=== PATIENT | female | born 2005 | race Hispanic/Latino ===

== ENCOUNTER 2024-12-29 20:09 | Inpatient (IN) | payer SELFPAY ==
[2024-12-29 19:24] VITALS: BMI 26.6
[2024-12-29 19:30] VITALS: BP 108/60; PULSE 75; O2SAT 99
[2024-12-29 19:31] VITALS: RESP 16; TEMP 36.8
[2024-12-29 20:02] LABS: ROM Internal Control Test YES-OK TO RESULT pt. (Internal QC)
[2024-12-29 20:06] LABS: ROM Patient Test POSITIVE (Negative); Record Kit Lot#, ROM+ K3358
--- OUTSIDE RECORDS SUMMARY | 2024-12-29 20:15 | XMS RPT_ITS | CCD ---
Author Organization [facility] Care Team Providers Care Commercial Energy Auditor Name Role Phone Unavailable Primary Care Provider Damion Wen RN, Juliette Hodgson Unavailable Unavailable KEN ISRAEL Attending Unavailable HAURY, JULIETA Referring Unavailable BENNIEANGELIC GARCIA Attending Unavailable HAURY, JULIETA Referring Unavailable LINDY, HUSSAINMON Attending Unavailable LINDY, HUSSAINMON Referring Unavailable LINDY, KARMON Referring Unavailable HAURY, JULIETA Referring Unavailable LINDY, KEN Attending Unavailable HAURY, JULIETA Referring Unavailable HAURY, JULIETA Referring Unavailable HAURY, JULIETA Attending Unavailable SELF Referring Unavailable ANGELIC CHEN Attending Unavailable PEGGY MATHEWS Attending Unavailable SELF Referring Unavailable ANGELIC CHEN Referring Unavailable CLEOPATRA ALEXANDER Attending Unavailable SELF Referring Unavailable SELF Referring Unavailable Medications Current Medications Medication Drug Class(es) Dates Sig (Normalized) Sig (Original) aspirin 81 mg delayed release oral tablet (19 sources) Platelet Aggregation Inhibitor, Nonsteroidal Anti-inflammatory Drug Start: 08-02-2024 take 1 tablet by mouth once daily aspirin, enteric coated (ECOTRIN LOW STRENGTH) 81 mg EC tablet Indications: Supervision of high risk in first trimester ([facility]) , with uncertain dates in first trimester ([facility]) , 12 weeks gestation of ([facility]) , Nausea/vomiting in ([facility]) Take 1 tablet by mouth once daily. 90 tablet 3 08/02/2024 Active azithromycin 500 mg oral tablet (1 source) Macrolide Antimicrobial Start: 08-05-2024 End: 08-05-2024 take 2 tablets by mouth once azithromycin (ZITHROMAX) 500 mg tablet Indications: Chlamydia infection affecting in first trimester Take 2 tablets by mouth one time only for 1 dose. 2 tablet 08/05/2024 08/05/2024 Active doxycycline monohydrate 100 mg oral capsule (4 sources) Tetracycline-class Drug Start: 08-05-2024 End: 08-12-2024 take 1 capsule by mouth twice daily doxycycline monohydrate (MONODOX) 100 mg capsule Take 1 capsule by mouth two times a day for 7 days. 14 capsule 08/05/2024 08/12/2024 Active PNV no.95/ferrous fum/folic ac ( ORAL) (19 sources) PNV no.95/ferrou s fum/folic ac ( ORAL) Take by mouth. Active Completed/Discontinued Medications Medication Drug Class(es) Dates Sig (Normalized) Sig (Original) ondansetron 4 mg oral tablet (4 sources) Serotonin-3 Receptor Antagonist Start: 08-06-2024 End: 09-03-2024 take 1 tablet by mouth every eight hours as needed ondansetron (ZOFRAN) 4 mg tablet Take 1 tablet by mouth every 8 hours as needed for nausea/vomiting. 20 tablet 1 08/06/2024 09/03/2024 Discontinued Problems Active Problems Problem Classification Problem Date Documented Da te Episodic/Chronic Bacterial infection; unspecified site (1 source) Chlamydial infection, unspecified; Translations: [Chlamydia infection affecting in first trimester (HCC)] Onset: 12-04-2024 Episodic Immunizations and screening for infectious disease (2 sources) Vaccination needed; Translations: [Encounter for immunization] Onset: 10-29-2024 10-29-2024 Episodic Other complications of (20 sources) High risk ; Translations: [Supervision of high risk , unspecified, first trimester] Onset: 08-02-2024 08-02-2024 Episodic Other complications of (1 source) Supervision of high risk , unspecified, third trimester; Translations: [Supervision of high risk in third trimester (HCC)] Onset: 12-18-2024 Episodic Other complications of (1 source) Other maternal infectious and parasitic diseases complicating , first trimester; Translations: [Chlamydia infection affecting in first trimester (HCC)] Onset: 12-04-2024 Episodic Other complications of (1 source) Supervision of high risk , unspecified, second trimester; Translations: [Supervision of high risk in second trimester (HCC)] Onset: 10-29-2024 Episodic Other screening for suspected conditions (not mental disorders or infectious disease) (20 sources) Patient encounter status; Translations: [Encounter for other specified screening] Onset: 09-03-2024 09-03-2024 Episodic Other skin disorders (2 sources) Eruption; Translations: [Rash and other nonspecific skin eruption] 09-03-2024 Episodic Residual codes; unclassified (1 source) Gestation period, 12 weeks; Translations: [12 weeks gestation of ] 08-02-2024 Episodic Residual codes; unclassified (2 sources) Gestation period, 15 weeks; Translations: [15 weeks gestation of ] 08-06-2024 Episodic Residual codes; unclassified (2 sources) Gestation period, 19 weeks; Translations: [19 weeks gestation of ] 09-03-2024 Episodic Residual codes; unclassified (1 source) ultrasound scan abnormal; Translations: [Pyelectasis of fetus on ultrasound] 09-03-2024 Episodic Residual codes; unclassified (2 sources) Gestation period, 23 weeks; Translations: [23 weeks gestation of ] 10-01-2024 Episodic Residual codes; unclassified (1 source) Gestation period, 27 weeks; Translations: [27 weeks gestation of ] 10-29-2024 Episodic Residual codes; unclassified (1 source) Gestation period, 29 weeks; Translations: [29 weeks gestation of ] 11-15-2024 Episodic Residual codes; unclassified (2 sources) Gestation period, 32 weeks; Translations: [32 weeks gestation of ] 12-04-2024 Episodic Residual codes; unclassified (1 source) Gestation period, 34 weeks; Translations: [34 weeks gestation of ] 12-18-2024 Episodic Residual codes; unclassified (1 source) 34 weeks gestation of ; Translations: [34 weeks gestation of (HCC)] Onset: 12-18-2024 Episodic Residual codes; unclassified (1 source) 32 weeks gestation of ; Translations: [32 weeks gestation of (HCC)] Onset: 12-04-2024 Episodic Residual codes; unclassified (1 source) 29 weeks gestation of ; Translations: [29 weeks gestation of (HCC)] Onset: 11-15-2024 Episodic Residual codes; unclassified (1 source) 27 weeks gestation of ; Translations: [27 weeks gestation of (HCC)] Onset: 10-29-2024 Episodic Residual codes; unclassified (1 source) 23 weeks gestation of ; Translations: [23 weeks gestation of (HCC)] Onset: 10-01-2024 Episodic Unclassified (11 sources) [facility] - [facility]ON Onset: 09-27-2024 09-27-2024 Unclassified (1 source) Encounter for repeat ultrasound of pyelectasis, antepartum, single or unspecified fetus (HCC); Translations: [Encounter for repeat ultrasound of pyelectasis, antepartum, single or unspecified fetus (HCC)] Onset: 10-02-2024 Unclassified (1 source) Pyelectasis of fetus on ultrasound; Translations: [Pyelectasis of fetus on ultrasound] Onset: 09-03-2024 Past or Other Problems Problem Classification Problem Date Documented Da te Episodic/Chronic Administrative/social admission (20 sources) Language barrier impedes ability to use community resources; Translations: [Acculturation difficulty] Onset: 08-02-2024 08-02-2024 Episodic Other complications of (20 sources) Vomiting of , unspecified; Translations: [Unspecified vomiting of , unspecified as to episode of care or not applicable] Onset: 08-02-2024 08-02-2024 Episodic Other complications of (20 sources) Infectious disease in mother complicating , childbirth AND/OR puerperium; Translations: [Other maternal infectious and parasitic diseases complicating , first trimester] Onset: 08-05-2024 08-05-2024 Episodic Other complications of (1 source) Supervision of high risk , unspecified, first trimester; Translations: [Supervision of high risk in first trimester] Onset: 08-02-2024 Episodic Other and delivery including normal (5 sources) with uncertain dates; Translations: [Encounter for supervision of normal , unspecified, first trimester] Onset: 08-02-2024 08-02-2024 Episodic Residual codes; unclassified (20 sources) History of headache; Translations: [Personal history of other specified conditions] Onset: 08-02-2024 08-02-2024 Episodic Residual codes; unclassified (1 source) 19 weeks gestation of ; Translations: [19 weeks gestation of ] Onset: 09-03-2024 Episodic Residual codes; unclassified (1 source) 12 weeks gestation of ; Translations: [12 weeks gestation of ] Onset: 08-06-2024 Episodic Unclassified (2 sources) Patient encounter status 09-03-2024 Results Test Name Value Interpretation Reference Range Facil ity URINE OB DIP B/Oon Glucose Ql (U) Negative Neg mg/dL [facility] Interpretation and review of laboratory results Normal [facility] Protein.monoclonal (U) [Mass/Vol] Negative Neg mg/dL [facility] Examination level ultrasound on 12-04-2024 [facility] Radiology Study observation (narrative) [facility] CBC W Auto Differential pane l (Bld)on 11-15-2024 Basophils (Bld) [#/Vol] 0.04 10*3/uL Normal <0.11 [facility] Comment on above: Order Comment: Speci men Type: BLOOD SPECIMEN Ordering Facility: [facility] Address: [address] [place] [address] Performed By: #### L [id number] #### [facility] CLIA [id number] [address] [place] [address] [place] Basophils/100 WBC (Bld) 0.4 % Normal [facility] Comment on above: Order Comment: Speci men Type: BLOOD SPECIMEN Ordering Facility: [facility] Address: [address] [place] [address] Performed By: #### L [id number] #### [facility] CLIA [id number] [address] [place] [address] [place] Differential cell count method Nom (Bld) Auto Normal [facility] Comment on above: Order Comment: Speci men Type: BLOOD SPECIMEN Ordering Facility: [facility] Address: [address] [place] [address] Performed By: #### L [id number] #### [facility] CLIA [id number] [address] [place] [address] [place] Eosinophils (Bld) [#/Vol] 0.06 10*3/uL Normal <0.46 [facility] Comment on above: Order Comment: Speci men Type: BLOOD SPECIMEN Ordering Facility: [facility] Address: [address] [place] [address] Performed By: #### L [id number] #### [facility] CLIA [id number] [address] [place] [address] [place] Eosinophils/100 WBC (Bld) 0.6 % Normal [facility] Comment on above: Order Comment: Speci men Type: BLOOD SPECIMEN Ordering Facility: [facility] Address: [address] [place] [address] Performed By: #### L [id number] #### [facility] CLIA [id number] [address] [place] [address] [place] Erythrocyte distribution width (RBC) [Ratio] 11.9 % Normal 11.5-15.0 [facility] Comment on above: Order Comment: Speci men Type: BLOOD SPECIMEN Ordering Facility: [facility] Address: [address] [place] [address] Performed By: #### L [id number] #### [facility] CLIA [id number] [address] [place] [address] [place] Hematocrit (Bld) [Volume fraction] 34.9 % Low 36.0-46.0 [facility] Comment on above: Order Comment: Speci men Type: BLOOD SPECIMEN Ordering Facility: [facility] Address: [address] [place] [address] Performed By: #### L [id number] #### [facility] CLIA [id number] [address] [place] [address] [place] Hemoglobin (Bld) [Mass/Vol] 11.6 g/dL Normal 11.5-15.5 [facility] Comment on above: Order Comment: Speci men Type: BLOOD SPECIMEN Ordering Facility: [facility] Address: [address] [place] [address] Performed By: #### L [id number] #### [facility] CLIA [id number] [address] [place] [address] [place] Immature granulocytes (Bld) [#/Vol] 0.07 10*3/uL Normal <0.10 [facility] Comment on above: Order Comment: Speci men Type: BLOOD SPECIMEN Ordering Facility: [facility] Address: [address] [place] [address] Performed By: #### L [id number] #### [facility] CLIA [id number] [address] [place] [address] [place] Immature granulocytes/100 WBC (Bld) 0.7 % Normal [facility] Comment on above: Order Comment: Speci men Type: BLOOD SPECIMEN Ordering Facility: [facility] Address: [address] [place] [address] Performed By: #### L [id number] #### [facility] CLIA [id number] [address] [place] [address] [place] Lymphocytes (Bld) [#/Vol] 1.95 10*3/uL Normal 1.00-4.00 [facility] Comment on above: Order Comment: Speci men Type: BLOOD SPECIMEN Ordering Facility: [facility] Address: [address] [place] [address] Performed By: #### L [id number] #### [facility] CLIA [id number] [address] [place] [address] [place] Lymphocytes/100 WBC (Bld) 20.1 % Normal [facility] Comment on above: Order Comment: Speci men Type: BLOOD SPECIMEN Ordering Facility: [facility] Address: [address] [place] [address] Performed By: #### L [id number] #### [facility] CLIA [id number] [address] [place] [address] [place] MCH (RBC) [Entitic mass] 30.5 pg Normal 26.0-34.0 [facility] Comment on above: Order Comment: Speci men Type: BLOOD SPECIMEN Ordering Facility: [facility] Address: [address] [place] [address] Performed By: #### L [id number] #### [facility] CLIA [id number] [address] [place] [address] [place] MCHC (RBC) [Mass/Vol] 33.2 g/dL Normal 30.5-36.0 [facility] Comment on above: Order Comment: Speci men Type: BLOOD SPECIMEN Ordering Facility: [facility] Address: [address] [place] [address] Performed By: #### L [id number] #### [facility] CLIA [id number] [address] [place] [address] [place] MCV (RBC) [Entitic vol] 91.8 fL Normal 80.0-100.0 [facility] Comment on above: Order Comment: Speci men Type: BLOOD SPECIMEN Ordering Facility: [facility] Address: [address] [place] [address] Performed By: #### L [id number] #### [facility] CLIA [id number] [address] [place] [address] [place] Monocytes (Bld) [#/Vol] 0.65 10*3/uL Normal <0.87 [facility] Comment on above: Order Comment: Speci men Type: BLOOD SPECIMEN Ordering Facility: [facility] Address: [address] [place] [address] Performed By: #### L [id number] #### [facility] CLIA [id number] [address] [place] [address] [place] Monocytes/100 WBC (Bld) 6.7 % Normal [facility] Comment on above: Order Comment: Speci men Type: BLOOD SPECIMEN Ordering Facility: [facility] Address: [address] [place] [address] Performed By: #### L [id number] #### [facility] CLIA [id number] [address] [place] [address] [place] Neutrophils (Bld) [#/Vol] 6.92 10*3/uL Normal 1.45-7.50 [facility] Comment on above: Order Comment: Speci men Type: BLOOD SPECIMEN Ordering Facility: [facility] Address: [address] [place] [address] Performed By: #### L [id number] #### [facility] CLIA [id number] [address] [place] [address] [place] Neutrophils/100 WBC (Bld) 71.5 % Normal [facility] Comment on above: Order Comment: Speci men Type: BLOOD SPECIMEN Ordering Facility: [facility] Address: [address] [place] [address] Performed By: #### L [id number] #### [facility] CLIA [id number] [address] [place] [address] [place] Nucleated RBC (Bld) [#/Vol] 10*3/uL Normal <0.01 [facility] Comment on above: Order Comment: Speci men Type: BLOOD SPECIMEN Ordering Facility: [facility] Address: [address] [place] [address] Performed By: #### L [id number] #### [facility] CLIA [id number] [address] [place] [address] [place] Nucleated RBC/100 WBC (Bld) [Ratio] 0.0 /100 WBC Normal [facility] Comment on above: Order Comment: Speci men Type: BLOOD SPECIMEN Ordering Facility: [facility] Address: [address] [place] [address] Performed By: #### L [id number] #### [facility] CLIA [id number] [address] [place] [address] [place] Platelet mean volume (Bld) [Entitic vol] 11.0 fL Normal 9.0-12.7 [facility] Comment on above: Order Comment: Speci men Type: BLOOD SPECIMEN Ordering Facility: [facility] Address: [address] [place] [address] Performed By: #### L [id number] #### [facility] CLIA [id number] [address] [place] [address] [place] Platelets (Bld) [#/Vol] 168 10*3/uL Normal 150-400 [facility] Comment on above: Order Comment: Speci men Type: BLOOD SPECIMEN Ordering Facility: [facility] Address: [address] [place] [address] Performed By: #### L [id number] #### [facility] CLIA [id number] [address] [place] [address] [place] RBC (Bld) [#/Vol] 3.80 10*6/uL Low 3.90-5.20 [facility] Comment on above: Order Comment: Speci men Type: BLOOD SPECIMEN Ordering Facility: [facility] Address: [address] [place] [address] Performed By: #### L [id number] #### [facility] CLIA [id number] [address] [place] [address] [place] WBC (Bld) [#/Vol] 9.69 10*3/uL Normal 3.70-11.00 [facility] Comment on above: Order Comment: Speci men Type: BLOOD SPECIMEN Ordering Facility: [facility] Address: [address] [place] [address] Performed By: #### L [id number] #### [facility] CLIA [id number] [address] [place] [address] [place] GESTATIONAL GLUCOSE SCREEN, 1-HOUR, 50 GRAM, NON-FASTINGon 11-15-2024 Glucose [Mass/Vol] 102 mg/dL Normal 74-134 [facility] Comment on above: Order Comment: Speci men Type: BLOOD SPECIMEN Ordering Facility: [facility] Address: [address] [place] [address] Result Comment: [facility] Congress of Obstetricians and Gynecologists (Joan/Jolly) guidelines state a gestational diabetes mellitus positive screen is made, in women not previously diagnosed with overt diabetes, when the 1 hr plasma glucose level is equal to or above 140 mg/dL. The [facility] [employer] [facility] recommends a 135 mg/dL cutoff. Performed By: #### R [id number] #### [facility] CLIA [id number] [address] [place] [address] [place] Reagin and Treponema pallidu m IgG and IgM [Interp]on 11-15-2024 T. pallidum IgG+IgM IA Ql (S) Non-Reactive Normal Nonreactive [facility] Comment on above: Order Comment: Speci men Type: BLOOD SPECIMEN Ordering Facility: [facility] Address: [address] [place] [address] Performed By: #### R [id number] #### [facility] CLIA [id number] [address] [place] [address] [place] Reagin+T pallidum IgG+IgM Se rPl-Impon 11-15-2024 Reagin and Treponema pallidum IgG and IgM [Interp] Cannot exclude recent Treponemal infection if specimen collected within 7-10 days after appearance of suspect lesions or 2-3 weeks after an exposure. Clinical correlation is required. Normal [facility] Comment on above: Order Comment: Speci men Type: BLOOD SPECIMEN Ordering Facility: [facility] Address: [address] [place] [address] Performed By: #### R [id number] #### [facility] CLIA [id number] [address] [place] [address] [place] Examination level ultrasound on 10-02-2024 [facility] C. trachomatis+N. gonorrhoea e DNA CLARENCE+probe Ql (Unsp spec)on 10-01-2024 C. trachomatis rRNA CLARENCE+probe Ql (Unsp spec) Not detected Normal Not detected [facility] Comment on above: Order Comment: Speci men Type: BLOOD SPECIMEN Ordering Facility: [facility] Address: [address] [place] [address] Performed By: #### L [id number] #### [facility] CLIA [id number] [facility] [address] N. gonorrhoeae rRNA CLARENCE+probe Ql (Unsp spec) Not detected Normal Not detected [facility] Comment on above: Order Comment: Speci men Type: BLOOD SPECIMEN Ordering Facility: [facility] Address: [address] [place] [address] Performed By: #### L [id number] #### [facility] CLIA [id number] [address] [place] [address] [place] Examination level ultrasound on 10-01-2024 Radiology Study observation (narrative) [facility] Examination level ultrasound on 09-03-2024 Indication Detailed anatomic survey, urinary tract dilation Impression REMOTE READ The patient is referred for a detailed anatomic survey. - Single, live, intrauterine . - biometry is consistent with the established gestational age. - No malformations were visualized on a detailed anatomic survey, although some anatomical structures were suboptimally seen as detailed below. - The amniotic fluid volume is normal amount. - The placenta is anterior, fundal. - The Transabdominal cervical length measures 38.9 mm with no evidence of funneling or other dynamic changes. - Not all structural malformations can be detected by ultrasound examination. Low risk UTD (A1), 16 -27 weeks 6/7 days (4 to <7 mm): - Urinary tract dilatation (previously called pyelectasis) is noted (normal on right, 5 mm left; normal < 4 mm). - The amount of dilation seen today would be considered low risk UTD (4 to <7 mm), suggesting a minimal risk of urinary tract abnormalities. - As an isolated finding UTDA1 is weakly associated with trisomy 21, increasing the risk by up to 2-fold. - Currently, there are no other findings suggestive of increased risk of urinary tract abnormalities such as no peripheral calyceal dilation, normal parenchyma appearance / thickness, no bladder enlargement, and normal amniotic fluid volume. Recommendations Screening with NIPT can be offered Return in 2-4 weeks to complete anatomic survey Maternal Assessment Height 168 cm Height (ft) 5 ft Height (in) 6 in Physical Exam Initial weight (lb) 144 lb Initial BMI 23.24 kg/m Method Transabdominal ultrasound examination. View: Adequate visualization Coleman . Number of fetuses: 1 Dating Ultrasound examination on: 09/03/2024 GA by U/S based upon: AC, BPD, Femur, HC GA by U/S 19 w + 2 d SUZY by U/S: 01/26/2025 Assigned: based on ultrasound (AC, BPD, Femur, HC), selected on 08/06/2024 Assigned GA 19 w + 2 d Assigned SUZY: 01/26/2025 General Evaluation Cardiac activity present. FHR 152 bpm. movements: present. Presentation: cephalic Placenta: Placental site: anterior, fundal Umbilical cord: Cord vessels: 3 vessel cord. Insertion site: normal insertion Amniotic fluid: Amount of AF: normal amount. MVP 5.0 cm Growth Overview Exam date GA BPD (mm) HC (mm) AC (mm) FL (mm) HL (mm) EFW (g) 08/06/2024 15w 2d 29.8 51% 113.8 42% 95.4 66% 17.1 40% 121 40% 09/03/2024 19w 2d 44.8 62% 164 44% 139.6 48% 28.3 42% 28.5 49% 270 30% Biometry Standard BPD 44.8 mm 19w 4d 62% Hadlock OFD 57.2 mm 18w 6d 48% Nicolaides HC 164.0 mm 19w 1d 44% Celia Cerebellum tr 19.7 mm 19w 0d 40% Hill Nuchal fold 3.6 mm AC 139.6 mm 19w 2d 48% Hadlock Femur 28.3 mm 18w 6d 42% Cleia Humerus 28.5 mm 19w 2d 49% Celia EFW 270 g 19w 0d 30% Hadlock EFW (lb) 0 lb EFW (oz) 10 oz EFW by: Hadlock (HC-AC-FL) Extended Kiln Packer 6.3 mm CM 3.8 mm 19% Nicolaides Nasal bone 5.3 mm Lt Renal pelvis ap 5.0 mm Extremities / Bony Struc FL / HC 0.17 11% Hadlock Other Structures FHR 152 bpm Anatomy Cranium: normal Lateral ventricles: normal Choroid plexus: normal Midline falx: normal Cavum septi pellucidi: suboptimally visualized Cerebellum: normal Cisterna magna: normal Head / Neck Vermis: normal Neck: normal Nuchal fold: normal Lips: normal Profile: normal Nose: normal Face Maxilla: normal Mandible: normal Orbits: normal Lens: normal 4-chamber view: normal RVOT view: normal LVOT view: normal 3-vessel view: normal 0-swcfna-dvovkeq view: normal Heart / Thorax Situs: situs solitus (normal) Aortic arch view: normal SVC: normal IVC: normal Cardiac axis: normal Rt lung: normal Lt lung: normal Diaphragm: normal Cord insertion: normal Stomach: normal Kidneys: normal Bladder: normal Genitals: normal Abdomen Abdom. wall: normal Rt kidney: normal Lt kidney: abnormal Lt kidney: Urinary tract dilation Cervical spine: normal Thoracic spine: normal Lumbar spine: normal Sacral spine: normal Arms: normal Legs: normal Rt upper arm: normal Rt forearm: normal Rt hand: normal Rt fingers: normal Lt upper arm: normal Lt forearm: normal Lt hand: normal Lt fingers: normal Rt upper leg: normal Rt lower leg: normal Rt foot: normal Lt upper leg: normal Lt lower leg: normal Lt foot: normal sex: male sex: normal Wants to know sex: yes Maternal Structures Uterus / Cervix Uterus: Visualized Cervix: Visualized Approach: Transabdominal Cervical length 38.9 mm Other: Patient declined transvaginal ultrasound fo (more content not included)... MATERNAL MEDICINE [facility] Radiology Study observation (narrative) [facility] Examination level ultrasound on 08-06-2024 Indication Dating Impression REMOTE READ - Single, live, intrauterine . - The biometry is consistent with SUZY 01/26/25 - The EFW is 121 g, at the 40%. AC is at the 66%. - Amniotic fluid volume is normal amount. - The placenta is anterior. - No malformations visualized on a limited survey as detailed below. Recommendations Return for anatomy ultrasound Maternal Assessment Height 168 cm Height (ft) 5 ft Height (in) 6 in Physical Exam Initial weight (lb) 144 lb Initial BMI 23.24 kg/m Maternal assessment other: 1 Para 0 Method Transabdominal ultrasound examination. View: Suboptimal view: limited by early gestational age Coleman . Number of fetuses: 1 Dating GA by prior assessment 13 w + 3 d SUZY by prior assessment: 02/08/2025 Ultrasound examination on: 08/06/2024 GA by U/S based upon: AC, BPD, Femur, HC GA by U/S 15 w + 2 d SUZY by U/S: 01/26/2025 Assigned: based on ultrasound (AC, BPD, Femur, HC), selected on 08/06/2024 Assigned GA 15 w + 2 d Assigned SUZY: 01/26/2025 General Evaluation Cardiac activity present. FHR 150 bpm. movements: present. Presentation: cephalic Placenta: Placental site: anterior Umbilical cord: Cord vessels: 3 vessel cord Amniotic fluid: Amount of AF: normal amount Growth Overview Exam date GA BPD (mm) HC (mm) AC (mm) FL (mm) HL (mm) EFW (g) 08/06/2024 15w 2d 29.8 51% 113.8 42% 95.4 66% 17.1 40% 121 40% Biometry Standard BPD 29.8 mm 15w 3d 51% Hadlock OFD 40.5 mm 14w 4d 32% Nicolaides HC 113.8 mm 15w 0d 42% Celia Cerebellum tr 14.8 mm 15w 5d 36% Hill AC 95.4 mm 15w 5d 66% Hadlock Femur 17.1 mm 15w 0d 40% Celia EFW 121 g 15w 1d 40% Hadlock EFW (lb) 0 lb EFW (oz) 4 oz EFW by: Hadlock (HC-AC-FL) Extremities / Bony Struc FL / HC 0.15 18% Hadlock Other Structures CRL 95.3 mm 15w 2d 58% Hadlock FHR 150 bpm Anatomy Lateral ventricles: suboptimally visualized Choroid plexus: normal Cavum septi pellucidi: suboptimally visualized Cerebellum: normal Cisterna magna: normal Profile: normal Nose: normal 4-chamber view: normal RVOT view: normal LVOT view: normal 3-vessel view: normal Heart / Thorax Situs: situs solitus (normal) Diaphragm: normal Cord insertion: normal Stomach: normal Kidneys: normal Bladder: normal Cervical spine: suboptimally visualized Thoracic spine: suboptimally visualized Lumbar spine: suboptimally visualized Sacral spine: suboptimally visualized Arms: normal Hands: normal Legs: normal Feet: normal Rt upper arm: normal Rt forearm: normal Rt hand: normal Lt upper arm: normal Lt forearm: normal Lt hand: normal Rt upper leg: normal Rt lower leg: normal Rt foot: normal Lt upper leg: normal Lt lower leg: normal Lt foot: normal Gender: Unspecified Wants to know sex: no Maternal Structures Uterus / Cervix Uterus: Visualized Ovaries / Tubes / Adnexa Rt ovary: Not visualized Lt ovary: Not visualized Performed By: Genesis Ledbetter, MACK, RVT Read By: Soheila Layton M.D. MATERNAL MEDICINE [facility] Radiology Study observation (narrative) [facility] Ronnie 08-05-2024 CNPN Telephone (OBGYWM) ANGELA KNAPP ([id number]) 3 F Date Time Provider Department 08/05/24 JULIETA WADE During your visit today, we recorded the following information about you: Julieta Wade APRN.BRIDGET 08/05/2024 7:46 AM Signed Please notify patient: Prefers general utility machine operator: Culture positive for chlamydia. To treat with Azithromycin. Partner should be treated - can send EPT. No intercourse during treatment or for 7 days after. Please notify health department. Julieta Wade APRN.Genesis Escalona RN 08/05/2024 12:03 PM Signed Patient notified of results with the assistance of general utility machine operator ID#[id number]. Patient notified of results, verbalizes understanding of instructions. Patient requesting EPT, order pended. Health department form filled out and faxed. Genesis Greenberg RN Allergies As of Date: 08/05/2024 (No Known Allergies) Date Reviewed: 08/02/2024 Reviewed by: Ryann Quintanilla MA - Fully Assessed Reason for Visit: Results [95] STD [102] Primary Visit Diagnosis:Chlamydia infection affecting in first trimester [O98.811, A74.9] Order(s):azithromyci n (ZITHROMAX) 500 mg tabletTake 2 tablets by mouth one time only for 1 dose.Disp: 2 tabletRfl: 0 [facility] [[id number]] Order #: [id number]: 1 doxycycline monohydrate (MONODOX) 100 mg capsuleTake 1 capsule by mouth two times a day for 7 days.Disp: 14 capsuleRfl: 0 Prescriptions as of 08/05/2024 - azithromycin (ZITHROMAX) 500 mg tablet Take 2 tablets by mouth one time only for 1 dose. - doxycycline monohydrate (MONODOX) 100 mg capsule Take 1 capsule by mouth two times a day for 7 days. - aspirin, enteric coated (ECOTRIN LOW STRENGTH) 81 mg EC tablet Take 1 tablet by mouth once daily. - PNV no.95/ferrous fum/folic ac ( ORAL) Take by mouth. Problem List As Of Date 08/05/2024 Noted Resolved Supervision of high risk in first tri*08/02/2024 Nausea/vomiting in [O21.9] 08/02/2024 Language barrier [Z60.3, Z75.8] 08/02/2024 Housing insecurity [Z59.819] 08/02/2024 History of headache [Z87.898] 08/02/2024 Chlamydia infection affecting in firs*08/05/2024 Prescriptions ordered this encounter Disp Refills Start End AZITHROMYCIN 500 MG TABLET 2 ta* 0 08/05/2024 08/05/2024 Route: ORAL Sig: Take 2 tablets by mouth one time only for 1 dose. DOXYCYCLINE MONOHYDRATE 100 MG CAPSU* 14 c* 0 08/05/2024 08/12/2024 Route: ORAL Sig: Take 1 capsule by mouth two times a day for 7 days. Encounter Status:Closed by GENESIS GREENBERG on 08/05/24 Normal [facility] Bacteria Ur Culton Bacteria identified Cx Nom (U) ORGANISM ID: 1 10,000 -<50,000 CFU/ml Normal urogenital berto Normal [facility] Comment on above: Performed By: #### L [id number] #### [facility] CLIA [id number] [address] [place] [address] [place] C. trachomatis+N. gonorrhoea e DNA CLARENCE+probe Ql (Unsp spec)on 08-02-2024 C. trachomatis rRNA CLARENCE+probe Ql (Unsp spec) Detected Abnormal Not detected [facility] Comment on above: Order Comment: Speci men Type: BLOOD SPECIMEN Ordering Facility: [facility] Address: [address] [place] [address] Performed By: #### L [id number] #### [facility] CLIA [id number] [address] [place] [address] [place] N. gonorrhoeae rRNA CLARENCE+probe Ql (Unsp spec) Not detected Normal Not detected [facility] Comment on above: Order Comment: Speci men Type: BLOOD SPECIMEN Ordering Facility: [facility] Address: [address] [place] [address] Performed By: #### L [id number] #### [facility] CLIA [id number] [address] [place] [address] [place] CARRIER SCREEN, STANDARDon 0 08-02-2024 CARRIER SCREEN RESULTS View results in Scanned Documents link when available. Normal [facility] Comment on above: Order Comment: Speci men Type: BLOOD SPECIMEN Ordering Facility: [facility] Address: [address] [place] [address] Performed By: #### C [id number] #### [facility] CLIA [id number] [address] [place] [id number] CBC W Auto Differential pane l (Bld)on 08-02-2024 Basophils (Bld) [#/Vol] 10*3/uL Normal <0.11 [facility] Comment on above: Order Comment: Speci men Type: BLOOD SPECIMEN Ordering Facility: [facility] Address: [address] [place] [address] Performed By: #### R UBIGG #### [facility] CLIA [id number] [address] [place] [address] [place] Basophils/100 WBC (Bld) 0.3 % Normal [facility] Comment on above: Order Comment: Speci men Type: BLOOD SPECIMEN Ordering Facility: [facility] Address: [address] [place] [address] Performed By: #### R UBIGG #### [facility] CLIA [id number] [address] [place] [address] [place] Differential cell count method Nom (Bld) Auto Normal [facility] Comment on above: Order Comment: Speci men Type: BLOOD SPECIMEN Ordering Facility: [facility] Address: [address] [place] [address] Performed By: #### R UBIGG #### [facility] CLIA [id number] [address] [place] [address] [place] Eosinophils (Bld) [#/Vol] 10*3/uL Normal <0.46 [facility] Comment on above: Order Comment: Speci men Type: BLOOD SPECIMEN Ordering Facility: [facility] Address: [address] [place] [address] Performed By: #### R UBIGG #### [facility] CLIA [id number] [address] [place] [address] [place] Eosinophils/100 WBC (Bld) 0.3 % Normal [facility] Comment on above: Order Comment: Speci men Type: BLOOD SPECIMEN Ordering Facility: [facility] Address: [address] [place] [address] Performed By: #### R UBIGG #### [facility] CLIA [id number] [address] [place] [address] [place] Erythrocyte distribution width (RBC) [Ratio] 12.9 % Normal 11.5-15.0 [facility] Comment on above: Order Comment: Speci men Type: BLOOD SPECIMEN Ordering Facility: [facility] Address: [address] [place] [address] Performed By: #### R UBIGG #### [facility] CLIA [id number] [address] [place] [address] [place] Hematocrit (Bld) [Volume fraction] 37.8 % Normal 36.0-46.0 [facility] Comment on above: Order Comment: Speci men Type: BLOOD SPECIMEN Ordering Facility: [facility] Address: [address] [place] [address] Performed By: #### R UBIGG #### [facility] CLIA [id number] [address] [place] [address] [place] Immature granulocytes (Bld) [#/Vol] 10*3/uL Normal <0.10 [facility] Comment on above: Order Comment: Speci men Type: BLOOD SPECIMEN Ordering Facility: [facility] Address: [address] [place] [address] Performed By: #### R UBIGG #### [facility] CLIA [id number] [address] [place] [address] [place] Immature granulocytes/100 WBC (Bld) 0.3 % Normal [facility] Comment on above: Order Comment: Speci men Type: BLOOD SPECIMEN Ordering Facility: [facility] Address: [address] [place] [address] Performed By: #### R UBIGG #### [facility] CLIA [id number] [address] [place] [address] [place] Lymphocytes (Bld) [#/Vol] 1.67 10*3/uL Normal 1.00-4.00 [facility] Comment on above: Order Comment: Speci men Type: BLOOD SPECIMEN Ordering Facility: [facility] Address: [address] [place] [address] Performed By: #### R UBIGG #### [facility] CLIA [id number] [address] [place] [address] [place] Lymphocytes/100 WBC (Bld) 22.2 % Normal [facility] Comment on above: Order Comment: Speci men Type: BLOOD SPECIMEN Ordering Facility: [facility] Address: [address] [place] [address] Performed By: #### R UBIGG #### [facility] CLIA [id number] [address] [place] [address] [place] MCH (RBC) [Entitic mass] 29.9 pg Normal 26.0-34.0 [facility] Comment on above: Order Comment: Speci men Type: BLOOD SPECIMEN Ordering Facility: [facility] Address: [address] [place] [address] Performed By: #### R UBIGG #### [facility] CLIA [id number] [address] [place] [address] [place] MCHC (RBC) [Mass/Vol] 34.1 g/dL Normal 30.5-36.0 [facility] Comment on above: Order Comment: Speci men Type: BLOOD SPECIMEN Ordering Facility: [facility] Address: [address] [place] [address] Performed By: #### R UBIGG #### [facility] CLIA [id number] [address] [place] [address] [place] MCV (RBC) [Entitic vol] 87.5 fL Normal 80.0-100.0 [facility] Comment on above: Order Comment: Speci men Type: BLOOD SPECIMEN Ordering Facility: [facility] Address: [address] [place] [address] Performed By: #### R UBIGG #### [facility] IA [id number] [address] [place] [address] [place] Monocytes (Bld) [#/Vol] 0.40 10*3/uL Normal <0.87 [facility] Comment on above: Order Comment: Speci men Type: BLOOD SPECIMEN Ordering Facility: [facility] Address: [address] [place] [address] Performed By: #### R UBIGG #### [facility] CLIA [id number] [address] [place] [address] [place] Monocytes/100 WBC (Bld) 5.3 % Normal [facility] Comment on above: Order Comment: Speci men Type: BLOOD SPECIMEN Ordering Facility: [facility] Address: [address] [place] [address] Performed By: #### R UBIGG #### [facility] CLIA [id number] [address] [place] [address] [place] Neutrophils (Bld) [#/Vol] 5.38 10*3/uL Normal 1.45-7.50 [facility] Comment on above: Order Comment: Speci men Type: BLOOD SPECIMEN Ordering Facility: [facility] Address: [address] [place] [address] Performed By: #### R UBIGG #### [facility] CLIA [id number] [address] [place] [address] [place] Neutrophils/100 WBC (Bld) 71.6 % Normal [facility] Comment on above: Order Comment: Speci men Type: BLOOD SPECIMEN Ordering Facility: [facility] Address: [address] [place] [address] Performed By: #### R UBIGG #### [facility] CLIA [id number] [address] [place] [address] [place] Nucleated RBC (Bld) [#/Vol] 10*3/uL Normal <0.01 [facility] Comment on above: Order Comment: Speci men Type: BLOOD SPECIMEN Ordering Facility: [facility] Address: [address] [place] [address] Performed By: #### R UBIGG #### [facility] CLIA [id number] [address] [place] [address] [place] Nucleated RBC/100 WBC (Bld) [Ratio] 0.0 /100 WBC Normal [facility] Comment on above: Order Comment: Speci men Type: BLOOD SPECIMEN Ordering Facility: [facility] Address: [address] [place] [address] Performed By: #### R UBIGG #### [facility] CLIA [id number] [address] [place] [address] [place] Platelet mean volume (Bld) [Entitic vol] 11.0 fL Normal 9.0-12.7 [facility] Comment on above: Order Comment: Speci men Type: BLOOD SPECIMEN Ordering Facility: [facility] Address: [address] [place] [address] Performed By: #### R UBIGG #### [facility] CLIA [id number] [address] [place] [address] [place] Platelets (Bld) [#/Vol] 159 10*3/uL Normal 150-400 [facility] Comment on above: Order Comment: Speci men Type: BLOOD SPECIMEN Ordering Facility: [facility] Address: [address] [place] [address] Performed By: #### R UBIGG #### [facility] CLIA [id number] [address] [place] [address] [place] RBC (Bld) [#/Vol] 4.32 10*6/uL Normal 3.90-5.20 [facility] Comment on above: Order Comment: Speci men Type: BLOOD SPECIMEN Ordering Facility: [facility] Address: [address] [place] [address] Performed By: #### R UBIGG #### [facility] CLIA [id number] [address] [place] [address] [place] WBC (Bld) [#/Vol] 7.51 10*3/uL Normal 3.70-11.00 [facility] Comment on above: Order Comment: Speci men Type: BLOOD SPECIMEN Ordering Facility: [facility] Address: [address] [place] [address] Performed By: #### R UBIGG #### [facility] CLIA [id number] [address] [place] [address] [place] CNPNon 08-02-2024 CNPN Telephone (NAVWST) ANGELA KNAPP ([id number]) 3 F Date Time Provider Department 08/02/24 KAZ WALLACEWSLakshmi During your visit today, we recorded the following information about you: Kaz Wallace MSW 08/02/2024 1:09 PM Signed Sw spoke with patient and set up appt for patient to come in and see Sw on 08/07 @1pm to review and discuss local agencies that assist with housing and other financial social service needs. Allergies As of Date: 08/02/2024 (No Known Allergies) Date Reviewed: 08/02/2024 Reviewed by: Ryann Quintanilla MA - Fully Assessed Prescriptions as of 08/05/2024 - azithromycin (ZITHROMAX) 500 mg tablet Take 2 tablets by mouth one time only for 1 dose. - aspirin, enteric coated (ECOTRIN LOW STRENGTH) 81 mg EC tablet Take 1 tablet by mouth once daily. - PNV no.95/ferrous fum/folic ac ( ORAL) Take by mouth. Problem List As Of Date 08/02/2024 Noted Resolved Supervision of high risk in first tri*08/02/2024 Nausea/vomiting in [O21.9] 08/02/2024 Language barrier [Z60.3, Z75.8] 08/02/2024 Housing insecurity [Z59.819] 08/02/2024 History of headache [Z87.898] 08/02/2024 Encounter Status:Closed by KAZ WALLACE on 08/05/24 Normal [facility] HBV surface Ag Ser Qlon 07-11 HBV surface Ag Ql (S) Negative Normal Negative [facility] Comment on above: Order Comment: Speci men Type: BLOOD SPECIMEN Ordering Facility: [facility] Address: [address] [place] [address] Performed By: #### L [id number] #### [facility] CLIA [id number] [address] [place] [address] [place] HCV Ab Ser Qlon 08-02-2024 HCV Ab Ql (S) Negative Normal Negative [facility] Comment on above: Order Comment: Kermit jennings Type: BLOOD SPECIMEN Ordering Facility: [facility] Address: [address] [place] [address] Result Comment: The result suggests no evidence of active infection with Hepatitis C virus. Should recent infection be suspected, repeat testing may be considered 4-6 weeks after this draw. Performed By: #### 1 [id number] #### [facility] CLIA [id number] [address] [place] [address] [place] HGB ELECTROPHORESIS FOR EVAL (LAB ORDER)on 08-02-2024 Hemoglobin A (Bld) [Mass fraction] 97.2 % Normal 96.2-98.0 [facility] Comment on above: Order Comment: Kermit jennings Type: BLOOD SPECIMEN Ordering Facility: [facility] Address: [address] [place] [address] Performed By: #### R UBIGG #### [facility] CLIA [id number] [address] [place] [address] [place] Hemoglobin A2 (Bld) [Mass fraction] 2.8 % Normal 2.0-3.1 [facility] Comment on above: Order Comment: Speci men Type: BLOOD SPECIMEN Ordering Facility: [facility] Address: [address] [place] [address] Performed By: #### R UBIGG #### [facility] CLIA [id number] [address] [place] [address] [place] Hemoglobin Unsp Elph (Bld) [Mass fraction] No abnormal hemoglobin identified. Normal No abnormal hemoglobin identified. [facility] Comment on above: Order Comment: Jesusi men Type: BLOOD SPECIMEN Ordering Facility: [facility] Address: [address] [place] [address] Performed By: #### R UBIGG #### [facility] CLIA [id number] [address] [place] [address] [place] HGB EVALUATION CASCADE INTER Faheem 08-02-2024 Hemoglobin pattern (Bld) [Interp] Reviewed by Becka Landin M.D., Ph.D Normal [facility] Comment on above: Order Comment: Speci men Type: BLOOD SPECIMEN Ordering Facility: [facility] Address: [address] [place] [address] Performed By: #### R UBIGG #### [facility] CLIA [id number] [address] [place] [address] [place] INTERPRETATION (HGB EVAL) Normal [facility] Comment on above: Order Comment: Speci men Type: BLOOD SPECIMEN Ordering Facility: [facility] Address: [address] [place] [address] Result Comment: Hemo globins were analyzed by capillary electrophoresis and CBC red cell parameters were reviewed. No abnormal hemoglobin is identified. There is a normal hemoglobin capillary electrophoresis pattern. Performed By: #### R UBIGG #### [facility] CLIA [id number] [address] [place] [address] [place] HIV 1+2 Ab IA Qlon HIV 1 and 2 Ab IA.rapid Nom (S/P/Bld) Normal [facility] Comment on above: Order Comment: Speci men Type: BLOOD SPECIMEN Ordering Facility: [facility] Address: [address] [place] [address] Result Comment: Test not indicated. Performed By: #### L [id number] #### [facility] CLIA [id number] [address] [place] [address] [place] HIV 1+2 Ab+HIV1 p24 Ag IA Ql Non-Reactive Normal Nonreactive [facility] Comment on above: Order Comment: Speci men Type: BLOOD SPECIMEN Ordering Facility: [facility] Address: [address] [place] [address] Performed By: #### L [id number] #### [facility] IA [id number] [address] [place] [address] [place] HIV immunoassay testing algorithm interpretation (S/P/Bld) [Interp] Normal [facility] Comment on above: Order Comment: Kermit dick Type: BLOOD SPECIMEN Ordering Facility: [facility] Address: [address] [place] [address] Result Comment: No e vidence of HIV-1 or HIV-2 infection. Should recent infection be suspected, repeat testing may be considered 2-3 weeks after this draw. [place] Rev. Code 3701.243(E): This information has been disclosed to you from confidential records protected from disclosure by state law. ???You shall make no further disclosure of this information without the specific, written, and informed release of the individual to whom it pertains or as otherwise permitted by state law. A general authorization for the release of medical or other information is not sufficient for the purpose of the release of HIV test results or diagnoses. Performed By: #### L [id number] #### [facility] IA [id number] [address] [place] [address] [place] HbA1c (Bld)on 08-02-2024 Average glucose Estimated from glycated hemoglobin (Bld) [Mass/Vol] 94 mg/dL Normal [facility] Comment on above: Order Comment: Kermit jennings Type: BLOOD SPECIMEN Ordering Facility: [facility] Address: [address] [place] [address] Result Comment: eAG: (Estimated average glucose) is a calculated value from HgbA1c and is operations representative of the average blood glucose level in the last 2-3 month period. Performed By: #### L [id number] #### [facility] CLIA [id number] [address] [place] [address] [place] HbA1c (Bld) [Mass fraction] 4.9 % Normal 4.3-5.6 [facility] Comment on above: Order Comment: Kermit jennings Type: BLOOD SPECIMEN Ordering Facility: [facility] Address: [address] [place] [address] Result Comment: [place] Diabetes Association guidelines indicate that patients with HgbA1c in the range 5.7-6.4% are at increased risk for development of diabetes, and intervention by lifestyle modification may be beneficial. HgbA1c greater or equal to 6.5% is considered diagnostic of diabetes. Performed By: #### L [id number] #### [facility] CLIA [id number] [address] [place] [address] [place] RBC PARAMETERS FOR HB IDon 0 - Erythrocyte distribution width (RBC) [Ratio] 12.7 % Normal 11.5-15.0 [facility] Comment on above: Order Comment: Kermit jennings Type: BLOOD SPECIMEN Ordering Facility: [facility] Address: [address] [place] [address] Performed By: #### L [id number] #### [facility] CLIA [id number] [address] [place] [address] [place] Hematocrit (Bld) [Volume fraction] 38.7 % Normal 36.0-46.0 [facility] Comment on above: Order Comment: Kermit jennings Type: BLOOD SPECIMEN Ordering Facility: [facility] Address: [address] [place] [address] Performed By: #### L [id number] #### [facility] CLIA [id number] [address] [place] [address] [place] Hemoglobin (Bld) [Mass/Vol] 12.9 g/dL Normal 11.5-15.5 [facility] Comment on above: Order Comment: Kermit jennings Type: BLOOD SPECIMEN Ordering Facility: [facility] Address: [address] [place] [address] Performed By: #### L [id number] #### [facility] CLIA [id number] [address] [place] [address] [place] Performed By: #### R [id number] #### [facility] CLIA [id number] [address] [place] [address] [place] MCH (RBC) [Entitic mass] 30.4 pg Normal 26.0-34.0 [facility] Comment on above: Order Comment: Speci men Type: BLOOD SPECIMEN Ordering Facility: [facility] Address: [address] [place] [address] Performed By: #### L [id number] #### [facility] CLIA [id number] [address] [place] [address] [place] MCHC (RBC) [Mass/Vol] 33.3 g/dL Normal 30.5-36.0 [facility] Comment on above: Order Comment: Speci men Type: BLOOD SPECIMEN Ordering Facility: [facility] Address: [address] [place] [address] Performed By: #### L [id number] #### [facility] CLIA [id number] [address] [place] [address] [place] MCV (RBC) [Entitic vol] 91.1 fL Normal 80.0-100.0 [facility] Comment on above: Order Comment: Speci men Type: BLOOD SPECIMEN Ordering Facility: [facility] Address: [address] [place] [address] Performed By: #### L [id number] #### [facility] CLIA [id number] [address] [place] [address] [place] RBC (Bld) [#/Vol] 4.25 10*6/uL Normal 3.90-5.20 [facility] Comment on above: Order Comment: Speci men Type: BLOOD SPECIMEN Ordering Facility: [facility] Address: [address] [place] [address] Performed By: #### L [id number] #### [facility] CLIA [id number] [address] [place] [address] [place] RUBELLA IGG ANTIBODYon 08-02 RUBELLA IGG AB, QUAL Positive Normal Positive [facility] Comment on above: Order Comment: Kermit jennings Type: BLOOD SPECIMEN Ordering Facility: [facility] Address: [address] [place] [address] Result Comment: The result suggests recent or past exposure to Rubella virus or history of Rubella vaccination. Positive result may also be seen due to presence of passively-transferred antibodies. Please correlate with patient's history. Performed By: #### R UBIGG #### [facility] CLIA [id number] [address] [place] [address] [place] Reagin and Treponema pallidu m IgG and IgM [Interp]on 08-02-2024 T. pallidum IgG+IgM IA Ql (S) Non-Reactive Normal Nonreactive [facility] Comment on above: Order Comment: Kermit jennings Type: BLOOD SPECIMEN Ordering Facility: [facility] Address: [address] [place] [address] Performed By: #### L [id number] #### [facility] CLIA [id number] [address] [place] [address] [place] Reagin+T pallidum IgG+IgM Se rPl-Impon 08-02-2024 Reagin and Treponema pallidum IgG and IgM [Interp] Cannot exclude recent Treponemal infection if specimen collected within 7-10 days after appearance of suspect lesions or 2-3 weeks after an exposure. Clinical correlation is required. Normal [facility] Comment on above: Order Comment: Kermit jennings Type: BLOOD SPECIMEN Ordering Facility: [facility] Address: [address] [place] [address] Performed By: #### L [id number] #### [facility] CLIA [id number] [address] [place] [address] [place] TYPE + SCREEN PRENATALon ABO O Normal [facility] Comment on above: Order Comment: Jesusi dick Type: BLOOD SPECIMEN Ordering Facility: [facility] Address: [address] [place] [address] Performed By: #### T SPN #### [facility] CLIA [id number] [address] [place] [address] [place] Rh Nom (Bld) Positive Normal [facility] Comment on above: Order Comment: Speci men Type: BLOOD SPECIMEN Ordering Facility: [facility] Address: [address] [place] [address] Performed By: #### T SPN #### [facility] CLIA [id number] [address] [place] [address] [place] TYPE AND SCREEN EXPIRATION 08/05/2024 23:59 Normal [facility] Comment on above: Order Comment: Speci men Type: BLOOD SPECIMEN Ordering Facility: [facility] Address: [address] [place] [address] Performed By: #### T SPN #### [facility] CLIA [id number] [address] [place] [address] [place] CNPSolange 07-30-2024 CNPN Telephone (OBGYWM) ANGELA DO ([id number]) 3 F Date Time Provider Department 07/30/24 JULIETA WADE During your visit today, we recorded the following information about you: Allergies As of Date: 07/30/2024 (Not on File) Date Reviewed: Never Reviewed Problem List As Of Date: 07/30/2024 (None) Encounter Status:Closed by ROLANDO MARTIN on 07/30/24 Normal [facility] Vital Signs Date Time Vital Sign Value Performing Clinician Courtney tyson 12-18-2024 11:23-0400 Body mass index (BMI) [Ratio] 26.15 kg/m2 Angelic Chen MD Work Phone: [facility] 12-18-2024 11:23-0400 Body weight 73.48 kg Angelic Chen MD Work Phone: [facility] 12-18-2024 11:23-0400 Diastolic blood pressure 66 mm[Hg] Angelic Chen MD Work Phone: [facility] 12-18-2024 11:23-0400 Systolic blood pressure 116 mm[Hg] Angelic Chen MD Work Phone: [facility] 12-04-2024 09:07-0400 Body mass index (BMI) [Ratio] 26.15 kg/m2 Peggy Mathews REED MAKER.CNM Work Phone: [facility] 12-04-2024 09:07-0400 Body weight 73.48 kg Peggy Mathews REED MAKER.CNM Work Phone: [facility] 12-04-2024 09:07-0400 Diastolic blood pressure 62 mm[Hg] Peggy Mathews REED MAKER.CNM Work Phone: [facility] 12-04-2024 09:07-0400 Systolic blood pressure 108 mm[Hg] Peggy Mathews REED MAKER.CNM Work Phone: [facility] 11-15-2024 11:06-0400 Body mass index (BMI) [Ratio] 26.05 kg/m2 Cleopatra Alexander MD Work Phone: [facility] 11-15-2024 11:06-0400 Body weight 73.21 kg Cleopatra Alexander MD Work Phone: [facility] 11-15-2024 11:06-0400 Diastolic blood pressure 70 mm[Hg] Cleopatra Alexander MD Work Phone: [facility] 11-15-2024 11:06-0400 Systolic blood pressure 116 mm[Hg] Cleopatra Alexander MD Work Phone: [facility] 10-29-2024 09:44-0400 Body mass index (BMI) [Ratio] 25.47 kg/m2 Ken Israel MD Work Phone: [facility] 10-29-2024 09:44-0400 Body weight 71.58 kg Ken Israel MD Work Phone: [facility] 10-29-2024 09:44-0400 Diastolic blood pressure 64 mm[Hg] Ken Israel MD Work Phone: [facility] 10-29-2024 09:44-0400 Systolic blood pressure 110 mm[Hg] Ken Israel MD Work Phone: [facility] 10-01-2024 09:50-0400 Body mass index (BMI) [Ratio] 24.53 kg/m2 Angelic Chen MD Work Phone: [facility] 10-01-2024 09:50-0400 Body weight 68.95 kg Angelic Chen MD Work Phone: [facility] 10-01-2024 09:50-0400 Diastolic blood pressure 60 mm[Hg] Angelic Chen MD Work Phone: [facility] 10-01-2024 09:50-0400 Systolic blood pressure 100 mm[Hg] Angelic Chen MD Work Phone: [facility] 09-03-2024 14:22-0500 Body mass index (BMI) [Ratio] 23.4 kg/m2 Ken Israel MD Work Phone: [facility] 09-03-2024 14:22-0500 Body weight 65.77 kg Ken Israel MD Work Phone: [facility] 09-03-2024 14:22-0500 Diastolic blood pressure 60 mm[Hg] Ken Israel MD Work Phone: [facility] 09-03-2024 14:22-0500 Systolic blood pressure 110 mm[Hg] Ken Israel MD Work Phone: [facility] 08-06-2024 11:35-0500 Body mass index (BMI) [Ratio] 22.92 kg/m2 Ken Israel MD Work Phone: [facility] 08-06-2024 11:35-0500 Body weight 64.41 kg Ken Israel MD Work Phone: [facility] 08-06-2024 11:35-0500 Diastolic blood pressure 62 mm[Hg] Ken Israel MD Work Phone: [facility] 08-06-2024 11:35-0500 Systolic blood pressure 104 mm[Hg] Ken Israel MD Work Phone: [facility] 08-02-2024 11:13-0500 Body height 167.6 cm Julieta Haury REED MAKER.NUTRITIONAL SERVICES DIRECTOR Work Phone: [facility] 08-02-2024 11:13-0500 Body mass index (BMI) [Ratio] 23.24 kg/m2 Julieta Haury REED MAKER.NUTRITIONAL SERVICES DIRECTOR Work Phone: [facility] 08-02-2024 11:13-0500 Body weight 65.32 kg Julieta Haury REED MAKER.NUTRITIONAL SERVICES DIRECTOR Work Phone: [facility] 08-02-2024 11:13-0500 Diastolic blood pressure 64 mm[Hg] Julieta Haury REED MAKER.NUTRITIONAL SERVICES DIRECTOR Work Phone: [facility] 08-02-2024 11:13-0500 Systolic blood pressure 118 mm[Hg] Julieta Haury REED MAKER.NUTRITIONAL SERVICES DIRECTOR Work Phone: [facility] Encounters Encounter Date Encounter Type Care Provider Facility Start: 12-18-2024 End: 12-18-2024 Office outpatient visit 15 minutes Angelic Chen MD Work Phone: OB/Gynecology Comment on above: Supervision of high risk in third trimester (HCC) (Primary Dx); 34 weeks gestation of (HCC) Start: 12-18-2024 End: 12-18-2024 ambulatory ANGELIC CHEN Facility:[facility] Start: 12-17-2024 End: 12-17-2024 ambulatory Juliette Wen RN Maternal Medicine Comment on above: Plan for baby Start: 12-17-2024 End: 12-17-2024 E-mail encounter from caregiver Juliette Wen RN Maternal Medicine Start: 12-13-2024 End: 12-13-2024 ambulatory Juliette Wen RN Maternal Medicine Start: 12-13-2024 End: 12-13-2024 Coordination of care plan Juliette Wen RN Maternal Medicine Comment on above: Care Plan (Car e Coordination /) Start: 12-04-2024 End: 12-04-2024 ambulatory ANGELIC CHEN Facility:[facility] Start: 12-04-2024 End: 12-04-2024 Patient encounter procedure Peggy Mathews APRN.CNM Work Phone: OB/Gynecology Comment on above: Supervision of high risk in third trimester (HCC) (Primary Dx); 32 weeks gestation of (HCC); Language barrier; Encounter for repeat ultrasound of pyelectasis, antepartum, single or unspecified fetus (HCC); Chlamydia infection affecting in first trimester (HCC) Encounter for ultras ound to check growth (HCC) (Primary Dx); Encounter for repeat ultrasound of pyelectasis, antepartum, single or unspecified fetus (HCC); 32 weeks gestation of (HCC) Start: 11-15-2024 End: 11-15-2024 Patient encounter procedure Cleopatra Alexander MD Work Phone: OB/Gynecology Comment on above: Supervision of high risk in second trimester (HCC) (Primary Dx); 29 weeks gestation of (HCC); Language barrier Start: 11-15-2024 End: 11-15-2024 ambulatory [facility] Facility:[facility] Start: 10-29-2024 End: 10-29-2024 Patient encounter procedure Ken Israel MD Work Phone: OB/Gynecology Comment on above: 27 weeks gestation o f (HCC) (Primary Dx); Language barrier; Supervision of high risk in second trimester (HCC); Need for vaccination; Encounter for repeat ultrasound of pyelectasis, antepartum, single or unspecified fetus (HCC) Start: 10-29-2024 End: 10-29-2024 ambulatory KEN ISRAEL Facility:[facility] Start: 10-02-2024 End: 12-02-2024 Follow-up encounter Julieta Wade APRN.NUTRITIONAL SERVICES DIRECTOR Work Phone: OB/Gynecology Start: 10-01-2024 End: 10-01-2024 Office outpatient visit 15 minutes Angelic Chen MD Work Phone: OB/Gynecology Comment on above: Supervision of high risk in second trimester (Primary Dx); Screening for diabetes mellitus; Language barrier; 23 weeks gestation of ; Chlamydia infection affecting in first trimester; Encounter for repeat ultrasound of pyelectasis, antepartum, single or unspecified fetus Start: 10-01-2024 End: 10-01-2024 [facility] JULIETA WADE Facility:[facility] Start: 10-01-2024 End: 10-01-2024 Patient encounter procedure [facility] 1 Closing Machine Operator Mfm Wstr [employer] Maternal Medicine Comment on above: Encounter for follow -up ultrasound of anatomy (Primary Dx); Nausea/vomiting in ; 23 weeks gestation of ; Encounter for repeat ultrasound of pyelectasis, antepartum, single or unspecified fetus Start: 09-03-2024 End: 09-03-2024 [facility] Start: 09-03-2024 End: 09-03-2024 Patient encounter procedure [facility] Tech 1 Closing Machine Operator M[employer]str [employer] Maternal Medicine Comment on above: Encounter for anatomic survey (Primary Dx); 19 weeks gestation of ; Pyelectasis of fetus on ultrasound Language barrier (Pr imary Dx); 19 weeks gestation of ; Supervision of high risk in second trimester; Encounter for follow-up ultrasound of anatomy; Skin rash Start: 09-03-2024 End: 09-03-2024 [facility] Start: 08-08-2024 End: 08-08-2024 Social Work Kaz [employer]ITE[employer] Navigation Start: 08-06-2024 End: 08-06-2024 [facility] JULIETA CHAMBERLAINSOUTH Facility:[facility] Start: 08-06-2024 End: 08-06-2024 Patient encounter procedure i Tech 1 Closing Machine Operator [employer] [facility] [facility] Maternal Medicine Comment on above: with uncer tain dates, first trimester (Primary Dx); 15 weeks gestation of Supervision of high risk in first trimester (Primary Dx); Chlamydia infection affecting in first trimester; 15 weeks gestation of ; Language barrier Start: 08-05-2024 End: 08-05-2024 Telephone encounter Julieta Wade APRN.NUTRITIONAL SERVICES DIRECTOR Work Phone: OB/Gynecology Comment on above: Results; STD Start: 08-02-2024 End: 08-05-2024 Telephone encounter Kaz Wallace ART HISTORY INSTRUCTOR Navigation Start: 08-02-2024 End: 08-02-2024 ambulatory JULIETA WADE Facility:[facility] Start: 08-02-2024 End: 08-02-2024 Patient encounter procedure Julieta Wade APRN.NUTRITIONAL SERVICES DIRECTOR Work Phone: OB/Gynecology Comment on above: Supervision of high risk in first trimester (Primary Dx); with uncertain dates in first trimester; 12 weeks gestation of ; Nausea/vomiting in ; Language barrier; Housing insecurity; History of headache Start: 07-30-2024 End: 07-30-2024 Telephone encounter Julieta Wade APRN.NUTRITIONAL SERVICES DIRECTOR Work Phone: OB/Gynecology Procedures Date Procedure Procedure Detail Performing Clinician Start: 12-18-2024 Urnls dip stick/tabl et rgnt non-auto w/o micrscp Angelic Chen MD Work Phone: Start: 12-04-2024 Us preg uterus after 1st trimest 1/1st gestation Angelic Chen MD Work Phone: Start: 10-01-2024 Us preg uterus after 1st trimest 1/1st gestation Julieta Wade APRN.NUTRITIONAL SERVICES DIRECTOR Work Phone: Start: 09-03-2024 Us preg uterus after 1st trimest /1st gestation Ken Israel MD Work Phone: Start: 08-06-2024 Us preg uterus after 1st trimest 1/1st gestation Julieta Wade APRN.NUTRITIONAL SERVICES DIRECTOR Work Phone: Start: 08-02-2024 Antibody screen KEN ISRAEL Comment on above: Order Comment: Speci men Type: BLOOD SPECIMEN Ordering Facility: [facility] Address: [address] [place] [address] Performed By: #### T SPN #### [facility] CLIA [id number] OF [place] Plan of Treatment Date Care Activity Detail Author Start: 2079 RSV Vaccine (1 - 1-d ose 75+ series) RSV Vaccine (1 - 1-dose 75+ series) [facility] Start: 10-29-2034 Urine microalbumin profile DTaP,Tdap,Td Vaccine (2 - Td or Tdap) [facility] Start: 10-01-2025 GC (Gonorrhea) Scree mikala (18) GC (Gonorrhea) Screening () [facility] Start: 10-01-2025 Screening for Chlamy terri trachomatis Chlamydia Screening () [facility] Start: 08-02-2025 GC (Gonorrhea) Scree mikala () GC (Gonorrhea) Screening () [facility] Start: 08-02-2025 Screening for Chlamy terri trachomatis Chlamydia Screening () [facility] Start: 03-10-2025 Influenza vaccination Influenz a Vaccine (Season Ended) [facility] Start: 01-01-2025 End: 01-01-2025 Patient encounter procedure 01/01/2025 10:30 AM EDT Routine Office Visit OB/Gynecology [address] [place] [id number] Angelic Chen MD [address] [place] [address] OB OB/Gynecology Comment on above: OB Start: 12-18-2024 End: 12-18-2024 Patient encounter procedure 12/18/2024 11:20 AM EDT Routine Office Visit OB/Gynecology [address] [place] [id number] Angelic Chen MD [address] [place] [address] OB OB/Gynecology Comment on above: OB Start: 12-04-2024 End: 12-04-2024 Patient encounter procedure Maternal Medicine Comment on above: Growth OB Routine Start: 11-15-2024 End: 11-15-2024 Patient encounter procedure 11/15/2024 10:50 AM EDT Routine Office Visit OB/Gynecology [address] [place] [address] Cleopatra Alexander MD [address] [place] [address] OB Routine OB/Gynecology Comment on above: OB Routine Start: 11-15-2024 End: 11-15-2024 ambulatory 11/15/2024 10:30 AM EDT Results Only [facility] [address] [place] [address] Glucose Test and Labs [facility] Comment on above: Glucose Test and Lab s Start: 10-29-2024 End: 10-29-2024 Patient encounter procedure 10/29/2024 9:50 AM EDT Routine Office Visit OB/Gynecology [address] [place] [address] Ken Israel MD [address] [place] [address] OB OB/Gynecology Comment on above: OB Start: 10-01-2024 End: 12-31-2024 ANEMIA REFLEX PANEL ANEMIA REFLEX PANEL Lab Routine 23 weeks gestation of Expected: 10/01/2024, Expires: 12/31/2024 [facility] Comment on above: Expected: 10/01/2024 , Expires: 12/31/2024 Start: 10-01-2024 End: 10-01-2025 GESTATIONAL GLUCOSE SCREEN, 1-HOUR, 50 GRAM, NON-FASTING GESTATIONAL GLUCOSE SCREEN, 1-HOUR, 50 GRAM, NON-FASTING Lab Routine Screening for diabetes mellitus 23 weeks gestation of Expected: 10/01/2024, Expires: 10/01/2025 [facility] Work Phone: Comment on above: Expected: 10/01/2024 , Expires: 10/01/2025 Start: 10-01-2024 End: 10-01-2025 OBSTETRIC ULTRASOUND WHI OBSTETRIC ULTRASOUND WHI Anc Imaging Routine Encounter for repeat ultrasound of pyelectasis, antepartum, single or unspecified fetus Expected: 10/01/2024, Expires: 10/01/2025 [facility] Comment on above: Expected: 10/01/2024 , Expires: 10/01/2025 Start: 10-01-2024 End: 10-01-2025 SYPHILIS TREPONEMAL W/REFLEX SYPHILIS TREPONEMAL W/REFLEX Lab Routine 23 weeks gestation of Expected: 10/01/2024, Expires: 10/01/2025 [facility] Comment on above: Expected: 10/01/2024 , Expires: 10/01/2025 Start: 10-01-2024 End: 10-01-2024 Patient encounter procedure Maternal Medicine Comment on above: Anatomy Start: 09-03-2024 End: 09-03-2025 OBSTETRIC ULTRASOUND WHI OBSTETRIC ULTRASOUND WHI Anc Imaging Routine Encounter for follow-up ultrasound of anatomy Expected: 09/03/2024, Expires: 09/03/2025 [facility] Work Phone: Comment on above: Expected: 09/03/2024 , Expires: 09/03/2025 Start: 09-03-2024 End: 09-03-2024 Patient encounter procedure Maternal Medicine Comment on above: ANATOMY US US /OB Start: 08-06-2024 End: 08-06-2025 OBSTETRIC ULTRASOUND WHI OBSTETRIC ULTRASOUND WHI Anc Imaging Routine Supervision of high risk in first trimester 15 weeks gestation of Expected: 08/06/2024, Expires: 08/06/2025 [facility] Work Phone: Comment on above: Expected: 08/06/2024 , Expires: 08/06/2025 Start: 08-06-2024 End: 08-06-2024 Patient encounter procedure Maternal Medicine Comment on above: Nuchal OB Start: 08-02-2024 End: 11-01-2024 ANEMIA REFLEX PANEL [facility] Comment on above: Expected: 08/02/2024 , Expires: 11/01/2024 Start: 08-02-2024 End: 11-01-2024 CARRIER SCREEN, STANDARD [facility] Comment on above: Expected: 08/02/2024 , Expires: 11/01/2024 Start: 08-02-2024 End: 11-01-2024 Hemoglobin A1c in Blood [facility] Comment on above: Expected: 08/02/2024 , Expires: 11/01/2024 Start: 08-02-2024 End: 11-01-2024 HEMOGLOBIN EVALUATION CASCADE [facility] Comment on above: Expected: 08/02/2024 , Expires: 11/01/2024 Start: 08-02-2024 End: 11-01-2024 Hepatitis B virus surface Ag [Presence] in Serum [facility] Comment on above: Expected: 08/02/2024 , Expires: 11/01/2024 Start: 08-02-2024 End: 11-01-2024 Hepatitis C virus Ab [Presence] in Serum [facility] Comment on above: Expected: 08/02/2024 , Expires: 11/01/2024 Start: 08-02-2024 End: 11-01-2024 HIV 1+2 Ab [Presence] in Serum or Plasma by Immunoassay [facility] Comment on above: Expected: 08/02/2024 , Expires: 11/01/2024 Start: 08-02-2024 End: 08-02-2025 OBSTETRIC ULTRASOUND WHI OBSTETRIC ULTRASOUND WHI Anc Imaging Routine Supervision of high risk in first trimester with uncertain dates in first trimester 12 weeks gestation of Nausea/vomiting in Expected: 08/02/2024, Expires: 08/02/2025 [facility] Comment on above: Expected: 08/02/2024 , Expires: 08/02/2025 Start: 08-02-2024 End: 11-01-2024 RUBELLA IGG ANTIBODY [facility] Comment on above: Expected: 08/02/2024 , Expires: 11/01/2024 Start: 08-02-2024 End: 11-01-2024 SYPHILIS TREPONEMAL W/REFLEX [facility] Comment on above: Expected: 08/02/2024 , Expires: 11/01/2024 Start: 08-02-2024 End: 11-01-2024 TYPE + SCREEN [facility] Comment on above: Expected: 08/02/2024 , Expires: 11/01/2024 Start: 08-02-2024 End: 08-02-2024 Patient encounter procedure 08/02/2024 11:00 AM EST Initial Office Visit OB/Gynecology [address] [place] [address] Julieta Wade APRN.NUTRITIONAL SERVICES DIRECTOR [address] [place] [address] Encounter for supervision of normal , antepartum, unspecified (Primary Dx); Encounter for supervision in primigravida, antepartum OB/Gynecology Comment on above: Encounter for superv ision of normal , antepartum, unspecified (Primary Dx); Encounter for supervision in primigravida, antepartum Start: 03-10-2024 Covid-19 Vaccine ( season) Covid-19 Vaccine ( season) [facility] Start: 03-10-2024 Influenza vaccination Influenza Vacc ine (#1) [facility] Start: 2023 Hepatitis B Vaccine (1 of 3 - 19+ 3-dose series) Hepatitis B Vaccine (1 of 3 - 19+ 3-dose series) [facility] Start: 2023 Urine microalbumin profile DTaP,Tdap,Td Vaccine (1 - Tdap) [facility] Start: 2022 Anxiety Screening Anxiety Screening [facility] Start: 2022 Depression Screening Depression Scre ening [facility] Start: 2022 GC (Gonorrhea) Scree mikala (18-24) GC (Gonorrhea) Screening (18-24) [facility] Start: 2022 Hepatitis C screening Hepatitis C Sc reening [facility] Start: 2022 HIV screening HIV Screening [facility] Start: 2022 Screening for Chlamy terri trachomatis Chlamydia Screening () [facility] Start: 2020 Meningococcal B Vacc ine (1 of 2 - Standard) Meningococcal B Vaccine (1 of 2 - Standard) [facility] Start: 2020 Meningococcal B Vacc ine: Consider Based On Risk (1 of 2 - Patient Seeks Protection) Meningococcal B Vaccine: Consider Based On Risk (1 of 2 - Patient Seeks Protection) [facility] Start: 2019 HPV Vaccine (1 - 3-d ose series) HPV Vaccine (1 - 3-dose series) [facility] Start: 2018 Peds To Adult Transi tion Annual Assessment Peds To Adult Transition Annual Assessment [facility] Start: 2016 Peds To Adult Transi tion Initial Discussion Peds To Adult Transition Initial Discussion [facility] Bacteria identified in Urine by Culture BACTERIAL CULTURE, URINE Microbiology Routine Supervision of high risk in first trimester with uncertain dates in first trimester 12 weeks gestation of Nausea/vomiting in 08/02/2024 12:00 PM EST [facility] Chlamydia trachomatis+Neisseria gonorrhoeae DNA [Presence] in Unspecified specimen by CLARENCE with probe detection GONORRHEA/CHLAMYDIA NAAT Lab Routine Supervision of high risk in first trimester with uncertain dates in first trimester 12 weeks gestation of Nausea/vomiting in 08/02/2024 12:00 PM [facility] Chlamydia trachomatis+Neisseria gonorrhoeae DNA [Presence] in Unspecified specimen by CLARENCE with probe detection GONORRHEA/CHLAMYDIA NAAT Lab Routine 23 weeks gestation of Chlamydia infection affecting in first trimester 10/01/2024 10:38 AM EDT [facility] POC INBOUND SALES MANAGER ULTRASOUND POC INBOUND SALES MANAGER ULTRASO UND Anc Imaging Routine with uncertain dates in first trimester Ordered: 08/02/2024 [facility] Work Phone: Comment on above: Ordered: 08/02/2024 Immunizations Immunization Date Immunization Notes Care Provider Neto mendoza 10-29-2024 tetanus toxoid, redu winifred diphtheria toxoid, and acellular pertussis vaccine, adsorbed Ken Israel MD Work Phone: [facility] Social History Date Type Detail Facility Start: 07-30-2024 Tobacco smoking stat us NHIS Never smoked tobacco [facility] Start: 07-30-2024 Tobacco use and exposure Smoke less tobacco non-user [facility] Start: 07-30-2024 End: 12-18-2024 Alcoholic beverage intake Ex-drinker (finding) [facility] Start: 07-30-2024 End: 08-02-2024 History of Social function [facility] Start: 07-30-2024 End: 08-02-2024 Tobacco use panel [facility] Start: 05-05-2024 [facility] Start: 2005 Sex assigned at Female [facility] Start: 07-30-2024 Gender identity Identifies as female gender (finding) [facility] Start: 07-30-2024 Sexual orientation Heterosexual (christine ramón) [facility] National Score (1-10 0), lower number is lower risk 70 [facility] The thought of thaddeus craven myself has occurred to me Never [facility] Goals Date Patient Goal Desired Activity /State Personal health goal Clinical Notes 07-30-2024 to 12-18-2024 Quick Notes - Angelic Chen MD - 12/18/2024 1:15 PM EDTPrenatal Quick Notes - Angelic Chen MD - 12/18/2024 1:15 PM EDTPatient InstructionsPatient InstructionsPatient Instructions Note Date & Type Note Facility 12-18-2024 Progress note Formatting of t his note might be different from the original. S: Angela Knapp is a 19 year old female who presents at 01/26/2025, by Ultrasound for a routine visit. Denies headache, visual changes, chest pain, shortness of breath, vaginal bleeding, leakage of fluid, or dysuria. Feeling well, no complaints. Good movement, No contractions O: See flow sheet Gen: No apparent distress Abd: Gravid, nontender ASSESSMENT/PLAN: 1. Supervision of high risk in third trimester (HCC) - ICD9: V23.9, ICD10: O09.93 (primary diagnosis) - URINE OB DIP B/O 2. 34 weeks gestation of (HCC) - ICD9: V22.2, ICD10: Z3A.34 PTL precautions - URINE OB DIP B/O Angelic Chen MD [facility] 12-18-2024 Miscellaneous Notes S: Angela Knapp is a 19 year old female who presents at 01/26/2025, by Ultrasound for a routine visit. Denies headache, visual changes, chest pain, shortness of breath, vaginal bleeding, leakage of fluid, or dysuria. Feeling well, no complaints. Good movement, No contractions O: See flow sheet Gen: No apparent distress Abd: Gravid, nontender ASSESSMENT/PLAN: 1. Supervision of high risk in third trimester (HCC) - ICD9: V23.9, ICD10: O09.93 (primary diagnosis) - URINE OB DIP B/O 2. 34 weeks gestation of (HCC) - ICD9: V22.2, ICD10: Z3A.34 PTL precautions - URINE OB DIP B/O Angelic Chen MD documented in this encounter [facility] 12-18-2024 Instructions Bernard Mancini MA - 12/18/2024 11:20 AM EDT SEQUENTIAL SCREENINGS The [facility] offers sequential screenings for women who are interested in screenings for chromosomal abnormalities and certain defects during a . The sequential screen combines ultrasound and blood tests to determine the risk of chromosomal abnormalities, including Down's Syndrome (Trisomy 21) and Trisomy 18, as well as open neural tube defects including spina bifida. Ultrasound examination is performed between 11 weeks and 13 weeks gestational age. Blood tests are drawn after the ultrasound and again later in the between 15 and 21 weeks gestational age. Please let your physician know if you are interested in this testing. It will require an appointment with our tire service technician. This is not an ultrasound performed by a physician in our office during a routine visit. SIGNS AND SYMPTOMS OF LABOR 1. Contractions every 10 minutes or more often 2. Clear, pink, or brownish fluid (water) leaking from vagina 3. Feeling that baby is pushing down, pressure 4. Low, dull backache 5. Cramps that feel like a period 6. Cramps with or without diarrhea If you notice any of the above symptoms, contact our office at [phone] and ask to speak with a nurse. After hours, you can call doctors registry at [phone] OR call [facility] at [phone] and ask to have the doctor psychologist industrial organizational paged. If you consider this an emergency, dial 9--1 or go to your nearest emergency department. NEED HELP? Are you dealing with a violent or abusive relationship? Are you a victim of rape or sexual assult? Call [facility] ([place]) 24 hour Crisis Hotline: 896.615.8991 or 121-378-7268. MANUAL Your Guide to a Healthy manual is now on-line. Visit [email or web address] Melina to download your free copy documented in this encounter [facility] 12-04-2024 Note Indication Evaluation of growth Impression - Single, live, intrauterine . - presentation is cephalic. - The biometry is consistent with the assigned gestational dating. - The EFW is 2265 g, at the 79%. AC is at the 95%. - The amniotic fluid volume is normal amount with an MVP of 6.7 cm and an AUGUSTA of 22.2 cm. - The placenta is anterior, fundal. - Urinary tract dilation left 7.6 mm, with visualization of right ureter adjacent to bladder dilated 9.8 mm - No malformations visualized on a limited survey as detailed below. Recommendations Referral to care center Growth and check kidneys in four weeks Maternal Assessment Height 168 cm Height (ft) 5 ft Height (in) 6 in Physical Exam Initial weight (lb) 144 lb Initial BMI 23.24 kg/m Maternal assessment other: 1 Para 0 REMOTE READ Method Transabdominal ultrasound examination Coleman . Number of fetuses: 1 Dating GA by prior assessment 32 w + 3 d SUZY by prior assessment: 01/26/2025 Ultrasound examination on: 12/04/2024 GA by U/S based upon: AC, BPD, Femur, HC GA by U/S 33 w + 6 d SUZY by U/S: 01/16/2025 Assigned: based on stated SUZY, selected on 10/01/2024 Assigned GA 32 w + 3 d Assigned SUZY: 01/26/2025 General Evaluation Cardiac activity present. FHR 146 bpm. movements: present. Presentation: cephalic Placenta: Placental site: anterior, fundal Umbilical cord: Cord vessels: 3 vessel cord Amniotic fluid: Amount of AF: normal amount. MVP 6.7 cm. AUGUSTA 22.2 cm. Q1 3.9 cm, Q2 6.7 cm, Q3 4.9 cm, Q4 6.7 cm Growth Overview Exam date GA BPD (mm) HC (mm) AC (mm) FL (mm) HL (mm) EFW (g) 08/06/2024 15w 2d 29.8 51% 113.8 42% 95.4 66% 17.1 40% 121 40% 09/03/2024 19w 2d 44.8 62% 164 44% 139.6 48% 28.3 42% 28.5 49% 270 30% 10/01/2024 23w 2d 58.6 71% 212 47% 188.6 52% 41.1 67% 596 50% 12/04/2024 32w 3d 86.6 96% 316.9 86% 306.8 95% 59.7 24% 2265 79% Biometry Standard BPD 86.6 mm 35w 0d 96% Hadlock OFD 110.9 mm 33w 3d 76% Nicolaides HC 316.9 mm 34w 5d 86% Celia AC 306.8 mm 34w 4d 95% Hadlock Femur 59.7 mm 31w 0d 24% Celia EFW 2,265 g 33w 3d 79% Hadlock EFW (lb) 5 lb EFW (oz) 0 oz EFW by: Hadlock (HC-AC-FL) Extended Kiln Packer 4.7 mm Rt Renal pelvis ap 6.5 mm Lt Renal pelvis ap 7.6 mm Extremities / Bony Struc FL / HC 0.19 Other Structures FHR 146 bpm Anatomy Lateral ventricles: normal Cavum septi pellucidi: normal Cerebellum: normal Cisterna magna: normal 4-chamber view: normal RVOT view: normal LVOT view: normal 3-vessel view: normal Heart / Thorax Situs: situs solitus (normal) Diaphragm: normal Stomach: normal Bladder: normal Abdomen Rt kidney: abnormal Rt kidney: ureter dilated 9.8 mm Lt kidney: abnormal Lt kidney: Urinary tract dilation sex: male Wants to know sex: yes Performed By: Genesis Ledbetter RDMS, RVT Read By: Soheila Layton M.D. [facility] 12-04-2024 Progress note Formatting of t his note is different from the original. ARIELLA-S: Angela Knapp is a 19 year old female who presents at 32w3d with SUZY: 01/26/2025, by Ultrasound for a routine visit. Denies headache, visual changes, chest pain, shortness of breath, vaginal bleeding, leakage of fluid, or dysuria. Feeling well, no complaints. O: See flow sheet Gen: No apparent distress Abd: Gravid, nontender ASSESSMENT/PLAN: 1. Supervision of high risk in third trimester -Continue PNV -Continue ASA -Reviewed CBE/, plan given -Discussed perineal massage 2. 32 weeks gestation of 3. Language barrier -Togolese speaking, interpretor given. 4. Encounter for repeat ultrasound of pyelectasis, antepartum, single or unspecified fetus -Repeat US today, awaiting formal report. Likely follow up US. 5. Chlamydia infection affecting in first trimester -GC/CT negative on 10/01/24 PTL precautions reviewed and when to call RTO in 2 weeks Peggy Mathews APRN.CNM [facility] 12-04-2024 Miscellaneous Notes ARIELLA-S: Angela Knapp is a 19 year old female who presents at 32w3d with SUZY: 01/26/2025, by Ultrasound for a routine visit. Denies headache, visual changes, chest pain, shortness of breath, vaginal bleeding, leakage of fluid, or dysuria. Feeling well, no complaints. O: See flow sheet Gen: No apparent distress Abd: Gravid, nontender ASSESSMENT/PLAN: 1. Supervision of high risk in third trimester -Continue PNV -Continue ASA -Reviewed CBE/, plan given -Discussed perineal massage 2. 32 weeks gestation of 3. Language barrier -Togolese speaking, interpretor given. 4. Encounter for repeat ultrasound of pyelectasis, antepartum, single or unspecified fetus -Repeat US today, awaiting formal report. Likely follow up US. 5. Chlamydia infection affecting in first trimester -GC/CT negative on 10/01/24 PTL precautions reviewed and when to call RTO in 2 weeks Peggy Mathews APRN.CNM documented in this encounter [facility] 12-04-2024 Instructions Peggy Mathews APRN.CNM - 12/04/2024 9:05 AM EDT Images from the original note were not included. Childbirth Classes in Togolese: https://www.Eleven James/bl ogs/news/mymrues-ufecgxjvh-wnt- jrcvksizwb-bolitbwzb-fzaervf-do spl-big-ktzhi-family?srsltid=Af mBOoqEmYfzVXQv_-[id number] [id number] [email or web address].womans.org/classes- and-events/ayurbjq-r-vlfvlfq SIGNS AND SYMPTOMS OF LABOR 1. Contractions every 10 minutes or more often 2. Clear, pink, or brownish fluid (water) leaking from vagina 3. Feeling that baby is pushing down, pressure 4. Low, dull backache 5. Cramps that feel like a period 6. Cramps with or without diarrhea If you notice any of the above symptoms, contact our office at [phone] and ask to speak with a nurse. After hours, you can call doctors registry at [phone] OR call [facility] at [phone] and ask to have the doctor psychologist industrial organizational paged. If you consider this an emergency, dial 2-1-2 or go to your nearest emergency department. NEED HELP? Are you dealing with a violent or abusive relationship? Are you a victim of rape or sexual assult? Call [facility] ([facility] 24 hour Crisis Hotline: 849.812.1860 or 677-840-6306. MANUAL Your Guide to a Healthy manual is now on-line. Visit [email or web address] Melina to download your free copy PERINEAL MASSAGE GOAL: Often, the perineum, or the area between a vaginal opening and anus, is damaged during labor and delivery of the baby. This area has a lot of muscles and tissue. It is very common to have obstetric lacerations or tears, especially in first-time mothers, but can happen in subsequent pregnancies as well. However, massages directed to the perineal area have been shown to reduce the amount of damage and the need for an episiotomy, which was an incision that is made if the muscles are too tight to allow delivery of the baby s head. ADVANTAGES: -It can increase the stretchiness of the perineal tissue and muscles. -It can increase blood flow to this area, which helps with healing and pain. -It can reduce tears or the severity of such tears during childbirth -It can be help patients understand muscle control and relaxation of these muscles prior to childbirth TIMING/DURATION: - 10 minutes of daily massage starting at 34-36 weeks of gestation until hospitalization for labor/delivery of the . -It can be helpful to complete the massage after bathing as there is more blood flow to this area during that time. MASSAGE METHOD: Place a small amount of lubricant on your thumb. Start by placing your thumb about 2 inches into the vagina. Then begin sweeping downward and sideways between 9 o clock to 3 o clock until you feel a burning, tingling or stinging sensation. When you feel those sensations, hold your thumb at that spot until the area feels numb ([place]) Do not massage the 12 o clock position because this is where the urethra (where you urinate) is located and massaging this area can be painful ([employer] and [employer]) CONSIDERATIONS: Please do not complete if your water has broken as the massage could potentially increase the risk for infection Please do not complete if you are having an ongoing yeast or other vaginal infection Please avoid if you have vaginal herpes. RESOURCES: perineal massage. [facility]: [facility]. [employer] and [employer] - Own work based on: Diagram showing the anatomy of the vulva CRUK 285.svg by [employer].., CC BY-SA 3.0, https://commons.wiVoloMediaa.org/w /index.php?[email or web address] Angelina Database of Systematic Reviews . perineal massage for reducing perineal trauma. Angelina Systematic Review - Intervention Version published: 06 November 2012. https://doi-org.ccmain.ohionet. org/10.1002/06042314.FQ406551.p ub3 Stephen Martinez et al. Effectiveness of perineal massage in reducing perineal trauma and post- morbidities: A randomized controlled trial: Journal of Obstetrics and Gynecology Research. 44 (4). 2260-2126. 2018. documented in this encounter [facility] 12-04-2024 Note HNO ID: [id number] Author: PEGGY MATHEWS APRN.CNM Service: ? Author Type: Remnant Sorter Type: Progress Notes Filed: 12/04/2024 11:38 Note Text: ARIELLA-S: Angela Knapp is a 19 year old female who presents at 32w3d with SUZY: 01/26/2025, by Ultrasound for a routine visit. Denies headache, visual changes, chest pain, shortness of breath, vaginal bleeding, leakage of fluid, or dysuria. Feeling well, no complaints. US today O: See flow sheet Gen: No apparent distress Abd: Gravid, nontender ASSESSMENT/PLAN: 1. Supervision of high risk in third trimester -Continue PNV -Continue ASA 2. 32 weeks gestation of 3. Language barrier -Togolese speaking 4. Encounter for repeat ultrasound of pyelectasis, antepartum, single or unspecified fetus -Repeat US today, awaiting formal report PTL precautions reviewed and when to call RTO in 2 weeks Peggy Mathews APRN.CNM [facility] 12-04-2024 History of Presen t illness Narrative ARIELLA-S: Angela Knapp is a 19 year old female who presents at 32w3d with SUZY: 01/26/2025, by Ultrasound for a routine visit. Denies headache, visual changes, chest pain, shortness of breath, vaginal bleeding, leakage of fluid, or dysuria. Feeling well, no complaints. US today O: See flow sheet Gen: No apparent distress Abd: Gravid, nontender ASSESSMENT/PLAN: 1. Supervision of high risk in third trimester -Continue PNV -Continue ASA 2. 32 weeks gestation of 3. Language barrier -Togolese speaking 4. Encounter for repeat ultrasound of pyelectasis, antepartum, single or unspecified fetus -Repeat US today, awaiting formal report PTL precautions reviewed and when to call RTO in 2 weeks Peggy Mathews APRN.CNM documented in this encounter [facility] 11-15-2024 Progress note Formatting of t his note might be different from the original. SW- Pt doing well. No pain, vb, lof. Good FM PE: Gen- NAD, well appeaing Abd- Soft, gravid, NT See flowsheet A/p 29 wk gestation - Ultrasound for follow up scheduled - Discussed classes at [facility] - plan sheet given - PPBC: Interested in Mirena IUD 6 weeks - 28 wk labs today - LAR signed - List of peds given - RTO 2 wks Cleopatra Alexander DO [facility] 11-15-2024 Miscellaneous Notes SW- Pt doing well. No pain, vb, lof. Good FM PE: Gen- NAD, well appeaing Abd- Soft, gravid, NT See flowsheet A/p 29 wk gestation - Ultrasound for follow up scheduled - Discussed classes at [facility] - plan sheet given - PPBC: Interested in Mirena IUD 6 weeks - 28 wk labs today - LARC signed - List of peds given - RTO 2 wks Cleopatra Alexander DO documented in this encounter [facility] 11-15-2024 Instructions Cleopatra Alexander MD - 11/15/2024 11:03 AM EDT In person and online childbirth options: 1) [facility] Online Virtual Childbirth and Class. -Please call to register and for more information: [phone] and register for our online classes they are $40 for both or $20 for just the class ?? 2) [facility] Online Childbirth Education, , and classes: [email or web address]://[email or web address].[email or web address]. org 3) Here is a list of online childbirth education and resources. [facility] has online childbirth, , and parenting classes. https://events.[facility]. org, type in childbirth https://evidencebasedbTrony Science and Technology Developmentth.com/ childbirth-class/ https://blissful-.FoundHealth.comcom/p/empoweredmamasguide https://mamanaturalbirth.com/ SEQUENTIAL SCREENINGS The [facility] offers sequential screenings for women who are interested in screenings for chromosomal abnormalities and certain defects during a . The sequential screen combines ultrasound and blood tests to determine the risk of chromosomal abnormalities, including Down's Syndrome (Trisomy 21) and Trisomy 18, as well as open neural tube defects including spina bifida. Ultrasound examination is performed between 11 weeks and 13 weeks gestational age. Blood tests are drawn after the ultrasound and again later in the between 15 and 21 weeks gestational age. Please let your physician know if you are interested in this testing. It will require an appointment with our tire service technician. This is not an ultrasound performed by a physician in our office during a routine visit. SIGNS AND SYMPTOMS OF LABOR 1. Contractions every 10 minutes or more often 2. Clear, pink, or brownish fluid (water) leaking from vagina 3. Feeling that baby is pushing down, pressure 4. Low, dull backache 5. Cramps that feel like a period 6. Cramps with or without diarrhea If you notice any of the above symptoms, contact our office at [phone] and ask to speak with a nurse. After hours, you can call doctors registry at [phone] OR call [facility] at [phone] and ask to have the doctor psychologist industrial organizational paged. If you consider this an emergency, dial 9-1- or go to your nearest emergency department. NEED HELP? Are you dealing with a violent or abusive relationship? Are you a victim of rape or sexual assult? Call [facility] ([facility] 24 hour Crisis Hotline: 457.164.8257 or 325-926-4343. MANUAL Your Guide to a Healthy manual is now on-line. Visit [email or web address]/[email or web address] Melina to download your free copy documented in this encounter [facility] 10-29-2024 Progress note Formatting of t his note might be different from the original. KJ - S: Angela denies LOF, contractions or vaginal bleeding. O: 27w2d, see flow sheet SENSITIVE EXAM: Sensitive exam not performed. A/P: Assessment & Plan 27 weeks gestation of (HCC) Labs next visit Language barrier Supervision of high risk in second trimester (HCC) Need for vaccination Tdap today Encounter for repeat ultrasound of pyelectasis, antepartum, single or unspecified fetus (HCC) Scheduled 32 weeks IS Considering LARC and plans to discuss further at visit. Reviewed PTL & FM precautions Ken Israel MD [facility] 10-29-2024 Miscellaneous Notes KJ - S: Angela denies LOF, contractions or vaginal bleeding. O: 27w2d, see flow sheet SENSITIVE EXAM: Sensitive exam not performed. A/P: Assessment & Plan 27 weeks gestation of (HCC) Labs next visit Language barrier Supervision of high risk in second trimester (HCC) Need for vaccination Tdap today Encounter for repeat ultrasound of pyelectasis, antepartum, single or unspecified fetus (HCC) Scheduled 32 weeks IS Considering LARC and plans to discuss further at visit. Reviewed PTL & FM precautions Ken Israel MD documented in this encounter [facility] 10-29-2024 Note HNO ID: [id number] Author: TOSHA MONTOYA MA Service: ? Author Type: Gang Worker Type: Progress Notes Filed: 10/29/2024 10:32 Note Text: Patient identified by name and date of . Angela Knapp presents today for a vaccination of Tdap. Patient denies an allergy to latex: yes Patient denies a severe (life-threatening) allergy to a previous dose of Tdap, DTP, DTaP, DT or Td vaccine. Yes Patient denies history of epilepsy or neurological problems: Yes Patient is afebrile and denies being moderately or severely ill: Yes Patient denies history of Guillain-Lancaster Syndrome (a severe paralytic illness): Yes Tdap Adacel injection was given without incident. See immunizations for details of immunizations administered today. VIS sheet provided: Yes Provider Ken Israel MD was present in office at time of injection. Tosha Montoya MA [facility] 10-29-2024 History of Presen t illness Narrative Patient identified by name and date of . Angela Aria presents today for a vaccination of Tdap. Patient denies an allergy to latex: yes Patient denies a severe (life-threatening) allergy to a previous dose of Tdap, DTP, DTaP, DT or Td vaccine. Yes Patient denies history of epilepsy or neurological problems: Yes Patient is afebrile and denies being moderately or severely ill: Yes Patient denies history of Guillain-Lancaster Syndrome (a severe paralytic illness): Yes Tdap Adacel injection was given without incident. See immunizations for details of immunizations administered today. VIS sheet provided: Yes Provider Ken Israel MD was present in office at time of injection. Tosha Montoya MA documented in this encounter [facility] 10-29-2024 Instructions Tosha Montoya MA - 10/29/2024 9:41 AM EDT SEQUENTIAL SCREENINGS The [facility] offers sequential screenings for women who are interested in screenings for chromosomal abnormalities and certain defects during a . The sequential screen combines ultrasound and blood tests to determine the risk of chromosomal abnormalities, including Down's Syndrome (Trisomy 21) and Trisomy 18, as well as open neural tube defects including spina bifida. Ultrasound examination is performed between 11 weeks and 13 weeks gestational age. Blood tests are drawn after the ultrasound and again later in the between 15 and 21 weeks gestational age. Please let your physician know if you are interested in this testing. It will require an appointment with our tire service technician. This is not an ultrasound performed by a physician in our office during a routine visit. SIGNS AND SYMPTOMS OF LABOR 1. Contractions every 10 minutes or more often 2. Clear, pink, or brownish fluid (water) leaking from vagina 3. Feeling that baby is pushing down, pressure 4. Low, dull backache 5. Cramps that feel like a period 6. Cramps with or without diarrhea If you notice any of the above symptoms, contact our office at [phone] and ask to speak with a nurse. After hours, you can call doctors registry at [phone] OR call [facility] at [phone] and ask to have the doctor psychologist industrial organizational paged. If you consider this an emergency, dial 9-1-5 or go to your nearest emergency department. NEED HELP? Are you dealing with a violent or abusive relationship? Are you a victim of rape or sexual assult? Call [facility] ([place]) 24 hour Crisis Hotline: 329.562.7854 or 992-204-7018. MANUAL Your Guide to a Healthy manual is now on-line. Visit [email or web address] to download your free copy documented in this encounter [facility] 10-02-2024 Note Indication Follow-up evaluation to complete anatomic survey Impression REMOTE READ The patient is referred for completion of the anatomic survey in the setting of UTDA1. NIPT was recommended but not completed. - Single, live, intrauterine . - No malformations were visualized on a follow-up anatomic survey. - Anatomic survey was completed today. - The EFW is 596 g, at the 50%. AC is at the 52%. - The amniotic fluid volume is normal amount. - The placenta is anterior, fundal. - Bilateral UTDA1. There is bilateral mild renal pyelectasis with the right renal pelvis measuring 5.1 m and the left renal pelvis measuring 6.2 mm (prior 19 week measurements, R 3.3 mm, L 5.0 mm). No significant calyceal dilation is noted. The ureters were not evaluated. - Not all structural malformations can be detected by ultrasound examination. Recommendations - If aneuploidy screening has not been performed, NIPT should be offered. - Evaluation of the kidneys at 32-34 weeks is recommended. - Additional follow-up as clinically indicated. Maternal Assessment Height 168 cm Height (ft) 5 ft Height (in) 6 in Physical Exam Initial weight (lb) 144 lb Initial BMI 23.24 kg/m Maternal assessment other: 1 Para 0 Method Transabdominal ultrasound examination. View: Suboptimal view: limited by position Coleman . Number of fetuses: 1 Dating GA by prior assessment 23 w + 2 d SUZY by prior assessment: 01/26/2025 Ultrasound examination on: 10/01/2024 GA by U/S based upon: AC, BPD, Femur, HC GA by U/S 23 w + 4 d SUZY by U/S: 01/24/2025 Assigned: based on stated SUZY, selected on 10/01/2024 Assigned GA 23 w + 2 d Assigned SUZY: 01/26/2025 General Evaluation Cardiac activity present. FHR 148 bpm. movements: present. Presentation: cephalic Placenta: Placental site: anterior, fundal Umbilical cord: Cord vessels: 3 vessel cord Amniotic fluid: Amount of AF: normal amount. MVP 5.9 cm Growth Overview Exam date GA BPD (mm) HC (mm) AC (mm) FL (mm) HL (mm) EFW (g) 08/06/2024 15w 2d 29.8 51% 113.8 42% 95.4 66% 17.1 40% 121 40% 09/03/2024 19w 2d 44.8 62% 164 44% 139.6 48% 28.3 42% 28.5 49% 270 30% 10/01/2024 23w 2d 58.6 71% 212 47% 188.6 52% 41.1 67% 596 50% Biometry Standard BPD 58.6 mm 24w 0d 71% Hadlock OFD 73.6 mm 22w 5d 43% Nicolaides HC 212.0 mm 23w 1d 47% Celia AC 188.6 mm 23w 4d 52% Hadlock Femur 41.1 mm 23w 4d 67% Celia EFW 596 g 23w 2d 50% Hadlock EFW (lb) 1 lb EFW (oz) 5 oz EFW by: Hadlock (HC-AC-FL) Extended Kiln Packer 6.3 mm Rt Renal pelvis ap 5.1 mm Lt Renal pelvis ap 6.2 mm Extremities / Bony Struc FL / HC 0.19 Other Structures FHR 148 bpm Anatomy Lateral ventricles: normal Cavum septi pellucidi: normal Cerebellum: normal Cisterna magna: normal 4-chamber view: normal RVOT view: normal LVOT view: normal 3-vessel view: normal Heart / Thorax Situs: situs solitus (normal) Diaphragm: normal Stomach: normal Bladder: normal Abdomen Rt kidney: abnormal Rt kidney: Urinary tract dilation 5.1mm Lt kidney: abnormal Lt kidney: Urinary tract dilation 6.2mm sex: male Wants to know sex: yes Maternal Structures Uterus / Cervix Cervix: Visualized Approach: Transabdominal Cervical length 31.1 mm Performed By: Genesis Ledbetter RDMS, RVT Read By: Tosha Pan MD [facility] 10-01-2024 Progress note Formatting of t his note might be different from the original. S: Angela Knapp is a 19 year old female who presents at 01/26/2025, by Ultrasound for a routine visit. Denies headache, visual changes, chest pain, shortness of breath, vaginal bleeding, leakage of fluid, or dysuria. Feeling well, no complaints. Good movement, No contractions O: See flow sheet Gen: No apparent distress Abd: Gravid, nontender Bilateral UTD on US today Repeat at 32 weeks GC/CT collected ASSESSMENT/PLAN: 1. Screening for diabetes mellitus - ICD9: V77.1, ICD10: Z13.1 (primary diagnosis) - GESTATIONAL GLUCOSE SCREEN, 1-HOUR, 50 GRAM, NON-FASTING 2. Language barrier - ICD9: V49.89, ICD10: Z60.3, Z75.8 3. Supervision of high risk in second trimester - ICD9: V23.9, ICD10: O09.92 4. 23 weeks gestation of - ICD9: V22.2, ICD10: Z3A.23 - GESTATIONAL GLUCOSE SCREEN, 1-HOUR, 50 GRAM, NON-FASTING - SYPHILIS TREPONEMAL W/REFLEX - ANEMIA REFLEX PANEL - GONORRHEA/CHLAMYDIA NAAT 5. Chlamydia infection affecting in first trimester - ICD9: 647.63, 079.98, ICD10: O98.811, A74.9 - GONORRHEA/CHLAMYDIA NAAT Angelic Chen MD [facility] 10-01-2024 Miscellaneous Notes S: Angela Knapp is a 19 year old female who presents at 01/26/2025, by Ultrasound for a routine visit. Denies headache, visual changes, chest pain, shortness of breath, vaginal bleeding, leakage of fluid, or dysuria. Feeling well, no complaints. Good movement, No contractions O: See flow sheet Gen: No apparent distress Abd: Gravid, nontender Bilateral UTD on US today Repeat at 32 weeks GC/CT collected ASSESSMENT/PLAN: 1. Screening for diabetes mellitus - ICD9: V77.1, ICD10: Z13.1 (primary diagnosis) - GESTATIONAL GLUCOSE SCREEN, 1-HOUR, 50 GRAM, NON-FASTING 2. Language barrier - ICD9: V49.89, ICD10: Z60.3, Z75.8 3. Supervision of high risk in second trimester - ICD9: V23.9, ICD10: O09.92 4. 23 weeks gestation of - ICD9: V22.2, ICD10: Z3A.23 - GESTATIONAL GLUCOSE SCREEN, 1-HOUR, 50 GRAM, NON-FASTING - SYPHILIS TREPONEMAL W/REFLEX - ANEMIA REFLEX PANEL - GONORRHEA/CHLAMYDIA NAAT 5. Chlamydia infection affecting in first trimester - ICD9: 647.63, 079.98, ICD10: O98.811, A74.9 - GONORRHEA/CHLAMYDIA NAAT Angelic Chen MD documented in this encounter [facility] 10-01-2024 Instructions Ryann Quintanilla MA - 10/01/2024 9:46 AM EDT SEQUENTIAL SCREENINGS The [facility] offers sequential screenings for women who are interested in screenings for chromosomal abnormalities and certain defects during a . The sequential screen combines ultrasound and blood tests to determine the risk of chromosomal abnormalities, including Down's Syndrome (Trisomy 21) and Trisomy 18, as well as open neural tube defects including spina bifida. Ultrasound examination is performed between 11 weeks and 13 weeks gestational age. Blood tests are drawn after the ultrasound and again later in the between 15 and 21 weeks gestational age. Please let your physician know if you are interested in this testing. It will require an appointment with our tire service technician. This is not an ultrasound performed by a physician in our office during a routine visit. SIGNS AND SYMPTOMS OF LABOR 1. Contractions every 10 minutes or more often 2. Clear, pink, or brownish fluid (water) leaking from vagina 3. Feeling that baby is pushing down, pressure 4. Low, dull backache 5. Cramps that feel like a period 6. Cramps with or without diarrhea If you notice any of the above symptoms, contact our office at [phone] and ask to speak with a nurse. After hours, you can call doctors registry at [phone] OR call [facility] at [phone] and ask to have the doctor psychologist industrial organizational paged. If you consider this an emergency, dial 1-1-6 or go to your nearest emergency department. NEED HELP? Are you dealing with a violent or abusive relationship? Are you a victim of rape or sexual assult? Call [facility] ([place]) 24 hour Crisis Hotline: 348.781.9641 or 906-615-3755. MANUAL Your Guide to a Healthy manual is now on-line. Visit [email or web address] to download your free copy documented in this encounter [facility] 09-03-2024 Progress note Formatting of t his note might be different from the original. KJ - VB No. LOF No. CTXS No. Movement: present. Other c/o: she reports concerns about her skin. She reports some pale areas on her neck, chest & pain. Medication list reviewed. Physical Exam See Flow Sheet Gen: no accute distress, well appearing A/P 19w2d Estimated Date of Delivery: 01/26/25 UTD on anatomy US today - follow up in 4 weeks per . Patient declines NIPT at this time. [id number] information given. H/o chlamydia - needs SABINA at next visit. Skin changes - offered consult to dermatology. Ken Israel MD [facility] 09-03-2024 Miscellaneous Notes KJ - VB No. LOF No. CTXS No. Movement: present. Other c/o: she reports concerns about her skin. She reports some pale areas on her neck, chest & pain. Medication list reviewed. Physical Exam See Flow Sheet Gen: no accute distress, well appearing A/P 19w2d Estimated Date of Delivery: 01/26/25 UTD on anatomy US today - follow up in 4 weeks per . Patient declines NIPT at this time. [id number] information given. H/o chlamydia - needs SABINA at next visit. Skin changes - offered consult to dermatology. Ken Israel MD documented in this encounter [facility] 09-03-2024 Instructions Kerry Munguia MA - 09/03/2024 1:25 PM EST SEQUENTIAL SCREENINGS The [facility] offers sequential screenings for women who are interested in screenings for chromosomal abnormalities and certain defects during a . The sequential screen combines ultrasound and blood tests to determine the risk of chromosomal abnormalities, including Down's Syndrome (Trisomy 21) and Trisomy 18, as well as open neural tube defects including spina bifida. Ultrasound examination is performed between 11 weeks and 13 weeks gestational age. Blood tests are drawn after the ultrasound and again later in the between 15 and 21 weeks gestational age. Please let your physician know if you are interested in this testing. It will require an appointment with our tire service technician. This is not an ultrasound performed by a physician in our office during a routine visit. SIGNS AND SYMPTOMS OF LABOR 1. Contractions every 10 minutes or more often 2. Clear, pink, or brownish fluid (water) leaking from vagina 3. Feeling that baby is pushing down, pressure 4. Low, dull backache 5. Cramps that feel like a period 6. Cramps with or without diarrhea If you notice any of the above symptoms, contact our office at [phone] and ask to speak with a nurse. After hours, you can call [employer] registry at [phone] OR call [facility] at [phone] and ask to have the doctor psychologist industrial organizational paged. If you consider this an emergency, dial 9-1-1 or go to your nearest emergency department. NEED HELP? Are you dealing with a violent or abusive relationship? Are you a victim of rape or sexual assult? Call [facility] ([place]) 24 hour Crisis Hotline: 129.463.2454 or 489-369-4918. MANUAL Your Guide to a Healthy manual is now on-line. Visit [email or web address] to download your free copy documented in this encounter [facility] 08-08-2024 Note HNO ID: [id number] Author: KAZ WALLACE MSW Service: ? Author Type: Supervisor Filter Assembly Type: Progress Notes Filed: 08/08/2024 08:40 Note Text: Patient did not show for scheduled appt with Sw yesterday, 08/07@1pm. If during patient next office visit, if needs further assistance, please let Sw know and will work on reaching out to patient. [facility] 08-08-2024 History of Presen t illness Narrative Patient did not show for scheduled appt with Sw yesterday, 08/07@1pm. If during patient next office visit, if needs further assistance, please let Sw know and will work on reaching out to patient. documented in this encounter [facility] 08-06-2024 Progress note Formatting of t his note might be different from the original. KJ - VB No. LOF No. CTXS No. Movement: present. Other c/o: No. Medication list reviewed. Physical Exam See Flow Sheet Gen: no accute distress, well appearing A/P 15w2d Estimated Date of Delivery: 01/26/25 US changes EDC Discussed chlamydia treatment & precautions for her & partner. Schedule anatomy US. Ken Israel MD [facility] 08-06-2024 Miscellaneous Notes KJ - VB No. LOF No. CTXS No. Movement: present. Other c/o: No. Medication list reviewed. Physical Exam See Flow Sheet Gen: no accute distress, well appearing A/P 15w2d Estimated Date of Delivery: 01/26/25 US changes EDC Discussed chlamydia treatment & precautions for her & partner. Schedule anatomy US. Ken Israel MD documented in this encounter [facility] 08-06-2024 Instructions Kerry Munguia MA - 08/06/2024 11:02 AM EST SEQUENTIAL SCREENINGS The [facility] offers sequential screenings for women who are interested in screenings for chromosomal abnormalities and certain defects during a . The sequential screen combines ultrasound and blood tests to determine the risk of chromosomal abnormalities, including Down's Syndrome (Trisomy 21) and Trisomy 18, as well as open neural tube defects including spina bifida. Ultrasound examination is performed between 11 weeks and 13 weeks gestational age. Blood tests are drawn after the ultrasound and again later in the between 15 and 21 weeks gestational age. Please let your physician know if you are interested in this testing. It will require an appointment with our tire service technician. This is not an ultrasound performed by a physician in our office during a routine visit. SIGNS AND SYMPTOMS OF LABOR 1. Contractions every 10 minutes or more often 2. Clear, pink, or brownish fluid (water) leaking from vagina 3. Feeling that baby is pushing down, pressure 4. Low, dull backache 5. Cramps that feel like a period 6. Cramps with or without diarrhea If you notice any of the above symptoms, contact our office at [phone] and ask to speak with a nurse. After hours, you can call doctors registry at [phone] OR call [facility] at [phone] and ask to have the doctor psychologist industrial organizational paged. If you consider this an emergency, dial -3 or go to your nearest emergency department. NEED HELP? Are you dealing with a violent or abusive relationship? Are you a victim of rape or sexual assult? Call [facility] ([place]) 24 hour Crisis Hotline: 541.273.8442 or 037-586-2736. MANUAL Your Guide to a Healthy manual is now on-line. Visit [email or web address] to download your free copy documented in this encounter [facility] 08-05-2024 Telephone encounter Note Patient notified of results with the assistance of general utility machine operator ID#[id number]. Patient notified of results, verbalizes understanding of instructions. Patient requesting EPT, order pended. Health department form filled out and faxed. Genesis Greenberg RN [facility] 08-05-2024 Miscellaneous Notes Patient notified of results with the assistance of general utility machine operator ID#[id number]. Patient notified of results, verbalizes understanding of instructions. Patient requesting EPT, order pended. Health department form filled out and faxed. Genesis Greenberg RN Please notify patient: Prefers general utility machine operator: Culture positive for chlamydia. To treat with Azithromycin. Partner should be treated - can send EPT. No intercourse during treatment or for 7 days after. Please notify health department. Julieta Wade APRN.BRIDGET documented in this encounter [facility] 08-05-2024 Telephone encounter Note Please notify patient: Prefers general utility machine operator: Culture positive for chlamydia. To treat with Azithromycin. Partner should be treated - can send EPT. No intercourse during treatment or for 7 days after. Please notify health department. Julieta Wade APRN.CNP [facility] 08-02-2024 Telephone encounter Note Nely spoke with patient and set up appt for patient to come in and see Sw on 08/07 @1pm to review and discuss local agencies that assist with housing and other financial social service needs. [facility] 08-02-2024 Miscellaneous Notes Nely spoke with patient and set up appt for patient to come in and see Sw on 08/07 @1pm to review and discuss local agencies that assist with housing and other financial social service needs. documented in this encounter [facility] 07-30-2024 Note HNO ID: [id number] Author: JULIETA WADE APRN.NUTRITIONAL SERVICES DIRECTOR Service: ? Author Type: Nurse Practitioner Type: Progress Notes Filed: 08/02/2024 16:20 Note Text: Peanut Picker offered: Patient declines. INITIAL OB ASSESSMENT HPI: Angela is a 19 year old White Female here to establish Obstetrical Care. Patient's last menstrual period was 05/04/2024 (exact date). from OB Dating Form. was unplanned but accepted Complaints: (!) Severe nausea/vomiting; (Pt reports constant nausea. Eating and drinking helps nausea. Intermittent coughing (Not vomiting blood) OB History T0 L0 SAB0 IAB0 Ectopic0 Multiple0 Live Births0 Previous history: Prior : never History of 4th degree laceration: NA History of shoulder dystocia: No History of Hypertensive disorders including pre-eclampsia or gestational hypertension: NA History of gestational diabetes: NA Patient's Risk Screening for delivery: Have you had a prior coleman between 20w and 36w6d? No How many pregnancies have you had before? 0 Did you have a previous baby with a GBS Infection? No Please select all that apply for any prior : N/A MEDICAL/PSYCHOSOCIAL HISTORY: History of hemorrhage or bleeding concerns: No Thyroid Disease: No History of chronic hypertension: No History of pre-existing diabetes: No No results found for: ABORHD BMI 23.24 kg/(m2) Last Pap: N/A History of abnormal pap: No Prior treatment for cervical dysplasia: N/A. Last HPV: N/A History of STDs: None Partner History of STDs: None Did you have a partner with Herpes? No Tobacco use: No E-Cigarette/Vaping Use: No Caffeine use: No Drug use: No Alcohol use: No Multivitamin with Folic acid: No Would refuse blood transfusion if medically necessary: No Social Needs: How often does this describe you? I don't have enough money to pay my bills: Sometimes Within the past 12 months, have you worried that your food would run out before you had money to buy more? Never In the past 12 months, has lack of reliable transportation kept you from going to medical appointments or work, or from getting things needed for daily living? Never In the past 12 months, have you had any concerns about having a place to live, or about the condition or quality of your housing? Sometimes Social History: Do you have any history of depression, anxiety, PTSD, or other mood problems? No Do you have a history of abuse or trauma that may impact your experience? No Are you currently employed? No Depression/Anxiety Screening: denies symptoms of depression. OB Depression and Anxiety Screening- This Encounter (since 08/01/2024) Over the past 2 weeks have you felt down, depressed, or hopeless? Negative Over the past two weeks, have you felt little interest or pleasure in doing things?? Negative Feeling nervous, anxious or on edge 0-Not at all Not being able to stop or control worrying 0-Not al all Anxiety Pre-Screening Total (If >/= 3 additional questions will be reviewed) 0 Genetic Screening: Partner present: Yes Patient verbalized knowledge of partner family health history: No Do you or your partner have any personal or family history of defects not previously discussed: No Do you have history of a complicated by anomaly, genetic condition, or demise: No Preeclampsia Risk Screening: Screening for prevention of preeclampsia: High risk factors: None Moderate risk ractors: Nulliparity OB Risk Screening: Completed, no positive findings documented. Marital Status:Partnering Partner: Name: Erickson Matt Age: 26 Occupation: Construction Gender: Male History reviewed. No pertinent past medical history. History reviewed. No pertinent surgical history. Current Outpatient Medications Medication Sig Dispense Refill PNV no.95/ferrous fum/folic ac ( ORAL) Take by mouth. No current facility-administered medications for this visit. Allergies As of Date: 08/02/2024 (No Known Allergies) Fully Assessed 08/02/2024 Does patient have penicillin allergy: No REVIEW OF SYSTEMS: GENERAL: Negative for: Fever or Chills HEENT: Negative for: Impaired Vision, Ringing in Ears, Nosebleeds + headache NECK: Negative for: Swelling, Pain, Stiffness RESPIRATORY: Negative for: Shortness of breath, Wheezing + cough GASTROINTESTINAL: Negative for: Heartburn, Constipation, Diarrhea, Blood in stool + nausea MUSCULOSKELETAL: Negative for: Muscle or joint pain, stiffness, Joint swelling NEUROLOGIC/PSYCHIATRIC: Negative for: Weakness, Paralysis, Numbness, Tingling, Tremor, Anxiety, Depression, Memory loss SKIN: Negative for: Rash, Itching GENITOURINARY: Negative for: vaginal itching, vaginal discharge, hematuria or dysuria SENSITIVE EXAM: The sensitive examination was discussed with the Patient or Patient's Authorized Mapping Analyst. As a (more content not included)... [facility] [facility] 07-30-2024 History of Presen t illness Narrative Peanut Picker offered: Patient declines. INITIAL OB ASSESSMENT HPI: Angela is a 19 year old White Female here to establish Obstetrical Care. Patient's last menstrual period was 05/04/2024 (exact date). from OB Dating Form. was unplanned but accepted Complaints: (!) Severe nausea/vomiting; (Pt reports constant nausea. Eating and drinking helps nausea. Intermittent coughing (Not vomiting blood) OB History T0 L0 SAB0 IAB0 Ectopic0 Multiple0 Live Births0 Previous history: Prior : never History of 4th degree laceration: NA History of shoulder dystocia: No History of Hypertensive disorders including pre-eclampsia or gestational hypertension: NA History of gestational diabetes: NA Patient's Risk Screening for delivery: Have you had a prior coleman between 20w and 36w6d? No How many pregnancies have you had before? 0 Did you have a previous baby with a GBS Infection? No Please select all that apply for any prior : N/A MEDICAL/PSYCHOSOCIAL HISTORY: History of hemorrhage or bleeding concerns: No Thyroid Disease: No History of chronic hypertension: No History of pre-existing diabetes: No No results found for: ABORHD BMI 23.24 kg/(m^2) Last Pap: N/A History of abnormal pap: No Prior treatment for cervical dysplasia: N/A. Last HPV: N/A History of STDs: None Partner History of STDs: None Did you have a partner with Herpes? No Tobacco use: No E-Cigarette/Vaping Use: No Caffeine use: No Drug use: No Alcohol use: No Multivitamin with Folic acid: No Would refuse blood transfusion if medically necessary: No Social Needs: How often does this describe you? I don't have enough money to pay my bills: Sometimes Within the past 12 months, have you worried that your food would run out before you had money to buy more? Never In the past 12 months, has lack of reliable transportation kept you from going to medical appointments or work, or from getting things needed for daily living? Never In the past 12 months, have you had any concerns about having a place to live, or about the condition or quality of your housing? Sometimes Social History: Do you have any history of depression, anxiety, PTSD, or other mood problems? No Do you have a history of abuse or trauma that may impact your experience? No Are you currently employed? No Depression/Anxiety Screening: denies symptoms of depression. OB Depression and Anxiety Screening- This Encounter (since 08/01/2024) Over the past 2 weeks have you felt down, depressed, or hopeless? Negative Over the past two weeks, have you felt little interest or pleasure in doing things? Negative Feeling nervous, anxious or on edge 0-Not at all Not being able to stop or control worrying 0-Not al all Anxiety Pre-Screening Total (If >/= 3 additional questions will be reviewed) 0 Genetic Screening: Partner present: Yes Patient verbalized knowledge of partner family health history: No Do you or your partner have any personal or family history of defects not previously discussed: No Do you have history of a complicated by anomaly, genetic condition, or demise: No Preeclampsia Risk Screening: Screening for prevention of preeclampsia: High risk factors: None Moderate risk ractors: Nulliparity OB Risk Screening: Completed, no positive findings documented. Marital Status:Partnering Partner: Name: Erickson Matt Age: 26 Occupation: Construction Gender: Male History reviewed. No pertinent past medical history. History reviewed. No pertinent surgical history. Current Outpatient Medications Medication Sig Dispense Refill PNV no.95/ferrous fum/folic ac ( ORAL) Take by mouth. No current facility-administered medications for this visit. Allergies As of Date: 08/02/2024 (No Known Allergies) Fully Assessed 08/02/2024 Does patient have penicillin allergy: No REVIEW OF SYSTEMS: GENERAL: Negative for: Fever or Chills HEENT: Negative for: Impaired Vision, Ringing in Ears, Nosebleeds + headache NECK: Negative for: Swelling, Pain, Stiffness RESPIRATORY: Negative for: Shortness of breath, Wheezing + cough GASTROINTESTINAL: Negative for: Heartburn, Constipation, Diarrhea, Blood in stool + nausea MUSCULOSKELETAL: Negative for: Muscle or joint pain, stiffness, Joint swelling NEUROLOGIC/PSYCHIATRIC: Negative for: Weakness, Paralysis, Numbness, Tingling, Tremor, Anxiety, Depression, Memory loss SKIN: Negative for: Rash, Itching GENITOURINARY: Negative for: vaginal itching, vaginal discharge, hematuria or dysuria SENSITIVE EXAM: The sensitive examination was discussed with the Patient or Patient's Authorized Mapping Analyst. As applicable, any other physician, advance practice provider, medical student, or other health professional student that will be observing or involved in the sensitive examination for educational or training purposes was discussed with the Patient or Authorized Mapping Analyst. The Patient or Authorized Mapping Analyst has agreed to proceed with the sensitive examination. (Sensitive examination includes inspection and/or palpation of the breasts, pelvis, prostate and anorectal regions). PHYSICAL EXAM: BP 118/64 Ht 5' 6 (1.68m) Wt 144 lb (65.3kg) LMP 05/04/2024 BMI 23.25 kg/(m^2). GENERAL: pleasant in no apparent distress DERMATOLOGY: Normal, without lesions, non-icteric, and non-hirsute NECK: Supple, full range of motion, no adenopathy, and thyroid normal CHEST: Normal inspiratory effort BREAST: soft, non-tender, symmetric, no dominant mass, normal nipple-areolar complex, no lymphadenopathy, and no nipple discharge ABDOMEN: soft, non-tender, and no masses NEURO: alert and oriented x3,exam grossly non-focal PELVIS: External genitalia normal without lesions. Perineal body intact. No vaginal or cervical lesions. Cervix closed. Uterus 12 week size. No adnexal masses or tenderness. Clinical Pelvimetry: Pelvimetry clinically assessed as adequate Limited OB ultrasound exam: single intrauterine and positive cardiac activity SBIRT Angela Mckayla was given the 4P's screening tool. Angela answered No to all the questions, the result is determined to be negative. ASSESSMENT: 19 year old at 12w6d wks gestational age PLAN: 1) Patient oriented to practice. Patient given new OB orientation folder. Discussed nutrition, folic acid supplementation, dietary guidelines, exercise, smoking, alcohol, caffeine, and drug use. Discussed gestational weight gain guidelines. Discussed routine OB labs including STD/HIV. Discussed how to access Your guide to a health and the Calculator Operator. Discussed hemoglobin electrophoresis. Patient: Accepts Reviewed midwifery and interior design coordinator services that are available. 2) Screening: Hemoglobin A1C: ordered Baby Aspirin: The patient has been counseled about the potential benefits of low dose aspirin in and our recommendation that this be offered to all patients, regardless of whether they meet the high risk criteria specified above. She Accepts Aneuploidy Screening: Discussed aneuploidy screening, nuchal translucency/first trimester early anatomy ultrasound and NIPT. The risks/benefits and limitations of NIPT/aneuploidy screening were reviewed including the potential for false negative and false positive results. The availability of genetic counseling was reviewed. Information on aneuploidy screening was provided. The patient chooses to proceed with First trimester early anatomy ultrasound (12-13w6d) Myriad Carrier Screening: Discussed myriad carrier screening. We discussed the availability of professional-society guided carrier screening and reviewed the conditions screened and limitations of screening. The availability of genetic counseling was reviewed. Information on carrier screening was provided. The patient Accepts 3) Patient offered option of Virtual Visits. Patient unsure. May consider in future. ACTIVE PROBLEM LIST Supervision of High Risk in First Trimester - 08/02/2024 Comment: Care Checklist Vaccines: [] Flu vaccine [] declined [] RSV vaccine 32 0/7 - 36 6/7 (Mar - Aug) [] declined [] COVID vaccine [] declined [] TDaP 27-36 [] declined First trimester: [x] Dating US [] 1st tri labs [] Pap smear NA [x] Carrier screening [] declined [] NIPT screening - considering [] declined [x] First trimester anatomy scan [] declined [x] universal ASA ordered (start 12w-16w) [] declined [] M Power Consult [] not indicated [] declined Second trimester: [] Anatomy scan [] Mode of Delivery - [] Feeding - [] Pump ordered [] Diabetes screen [] CBC, RPR [] Behavioral Health Screening Third trimester (28-30 weeks): [] Consent [] Contraception [] Outpatient Scheduler [] TeamBirth handout Third trimester (36-40 weeks): [] GBS [] Presentation - [] Scheduled [] yes - Hibiclens, pre-op instructions, CBC, T&S ordered [] no [] H&P [] Preferences worksheet [] Nausea/Vomiting in - 08/02/2024 Comment: 08/02/24 Vitamin B6 doses reviewed. To notify if prescription is needed. She is eating and drinking. Julieta Wade APRN.CNP Language Barrier - 08/02/2024 Comment: August 02, 2024 Preferred language is Togolese. Partner only speaks Togolese. Discussed availability of Togolese interpreters. Patient reports that she would like an honey grader and blender for future visits. Julieta Wade APRN.CNP Housing Insecurity - 08/02/2024 Comment: August 02, 2024 Reports MIL is currently paying for their housing due to partner not having job. Social work consult placed. Julieta Wade APRN.CNP Follow up in 1 weeks or sooner prn. Plan for NT scan between 12w0d and 13w6d gestation. Julieta Wade APRN.CNP documented in this encounter [facility] 07-30-2024 Instructions Julieta Wade APRN.CNP - 07/30/2024 4:01 PM EST Please select the following link to access the [facility] Your Guide to a Healthy . [email or web address] Please select the following link to access the [facility] Your Guide to a Healthy . [email or web address] Please select the following link to access the [facility] Your Guide to a Healthy . [email or web address] MORNING SICKNESS IN by Estephanie Rdz M.D. for [employer] As you may already know, morning sickness can often be more appropriately called evening sickness or klsye-shzorw-hz-the-day sickness. While there are the prasanna few, most women (50-90%) experience some degree of nausea, some have vomiting, and a few develop a severe form of vomiting during called hyperemesis gravidarum. What causes the nausea and vomiting of ? We can't explain why some people feel fine and others are green for months. Even the same woman may feel vastly different in each . There is some relationship between nausea and the level of the hormone hCG. In twin pregnancies, and in other situations where the hCG is greater than expected, nausea and vomiting tend to be worse. In a destined for miscarriage, hCG levels tend to be low, and nausea is often less severe. This being said, a lack of nausea doesn't guarantee that the is destined for miscarriage. The fact that nausea and vomiting are often signs of a healthy can offer a silver lining in the dark cloud of miserable nausea. How long will the nausea last? Fortunately, for most women, nausea and vomiting are a first trimester event, peaking at week 9-10 and waning by week 14-16. When you are feeling bad the weeks can go by slowly but most moms do feel tremendously better by the middle of the . Whether morning sickness is a brief experience or lasts through most of the , there are treatments that can make the weeks or months more tolerable. What can you do about it? Diet: See what works for you. Try eating bland dry foods, and avoid fatty or spicy foods. It is okay to eat a less than perfectly balanced diet in the first trimester. Have your liquids separately from dry foods. Try sports drinks, water, clear juices, Byron-aid, or non-caffeinated tea. Avoid carbonated beverages that fill up your stomach. Try eating lots of little meals. If you tend to feel sick when you first wake up, leave crackers next to the bed for a quick snack before rising. Keeping healthy snacks with you all day to nibble when you feel queasy can sometimes even prevent nausea from starting. vitamins and nausea: Pre-maribel vitamins can sometimes worsen nausea in . While folate is necessary, especially early in the , it comes as a smaller pill that many people find more tolerable than the complete vitamin pill. Ask your practitioner if it is okay to temporarily replace vitamins and iron with just a folate pill if you find a significant worsening in the level of your nausea from the vitamins. Alternative therapies: Acupressure may be used to treat nausea in , and is not known to have any risks for the fetus. Wristbands (marketed for seasickness) that put pressure on an acupressure point at the wrist are often available at drugstores or travel stores. Marcel root is used for nausea in many traditional cultures. Some women take fresh grated marcel or marcel tablets. It is possible that the pill form contains other ingredients or contaminants, so you may want to try fresh marcel first. Medications: Emetrol is the only nausea medication approved for use in . It is available over the counter and is soothing to the stomach. A prescription medication called Bendectin was available in the 1970s-1979's and was shown to be safe in , but the company stopped marketing it in the [place] due to the costs of liability coverage. Bendectin contained 10 milligrams of vitamin B6 and 10 milligrams of Doxylamine. Two tablets were given at bedtime and a total of up to 4 tablets could be used in a 24-hour period. Interestingly, Unisom , which contains a higher dose (25 mg.) of the same medication, Doxylamine, is currently marketed as an bzcm-mvr-dxwtriy sleeping pill. Ask your practitioner if creating a vitamin B6/Doxylamine combination with czej-kzn-kekvvby medications would be safe for you. Prescription medications like Compazine and Phenergan can be used if the benefits outweigh possible risks, but these have not been clearly shown to be safe in . Zofran , an expensive anti-nausea medication often used to treat nausea from chemotherapy, can also be used. Can I throw up so much it harms the baby? The act of vomiting cannot hurt your fetus, which is protected inside the uterus. If you get dehydrated or develop a metabolic imbalance, this can be unhealthy. As long as you can keep down liquids, you and your baby will generally do all right. Eat when you feel able. If you are unable to keep anything down, or if you notice potential signs of dehydration such as lightheadedness, or concentrated and/or infrequent urination, call your practitioner. Some women need brief hospital admission for intravenous fluids and anti-nausea medications if their condition becomes severe. This severe form of nausea and vomiting is called Hyperemesis Gravidarum. As with many symptoms of , remind yourself that this, too, shall pass, and you'll have a wonderful baby to show for it! TREATMENT OPTIONS, SHORT VERSION: Frequent small meals Hydrate throughout day [employer] wrist pressure point applicators Marcel root (powdered, in capsules) 250mg four times a day Vitamin B6 25 mg tablet three times a day Also may be taken with half a tablet of Unisom three times a day (Doxylamine 12.5 mg) If severe (weight loss, dehydration), call us and come in for IV hydration and possible medication in the form of injections. Prescription medications such as Phenergan, Compazine, Reglan documented in this encounter [facility] Evaluation note Diagnosis Supervision of high risk in first trimester- Primary Unspecified high-risk with uncertain dates in first trimester 12 weeks gestation of state, incidental Nausea/vomiting in Unspecified vomiting of , unspecified as to episode of care Language barrier Social maladjustment Housing insecurity History of headache Personal history of other specified diseases [facility] Chlamydia infection affecting in first trimester- Primary [facility] Diagnosis with uncertain dates, first trimester- Primary 15 weeks gestation of state, incidental [facility] Diagnosis Supervision of high risk in first trimester- Primary Unspecified high-risk Chlamydia infection affecting in first trimester 15 weeks gestation of state, incidental Language barrier Social maladjustment [facility] Diagnosis Encounter for anatomic survey- Primary 19 weeks gestation of state, incidental Pyelectasis of fetus on ultrasound Abnormal findings on screening [facility] Diagnosis Language barrier- Primary Social maladjustment 19 weeks gestation of state, incidental Supervision of high risk in second trimester Unspecified high-risk Encounter for follow-up ultrasound of anatomy Skin rash Rash and other nonspecific skin eruption documented in this encounter [facility] note* Diagnosis Supervision of high risk in second trimester- Primary Unspecified high-risk Encounter for repeat ultrasound of pyelectasis, antepartum, single or unspecified fetus Language barrier Social maladjustment 23 weeks gestation of state, incidental Chlamydia infection affecting in first trimester documented in this encounter [facility] note* Diagnosis Nausea/vomiting in Unspecified vomiting of , unspecified as to episode of care Encounter for repeat ultrasound of pyelectasis, antepartum, single or unspecified fetus 23 weeks gestation of state, incidental documented in this encounter [facility] note* Diagnosis 27 weeks gestation of (HCC)- Primary state, incidental Language barrier Social maladjustment Supervision of high risk in second trimester (HCC) Unspecified high-risk Need for vaccination Need for prophylactic vaccination and inoculation against unspecified single disease Encounter for repeat ultrasound of pyelectasis, antepartum, single or unspecified fetus (HCC) * Assessment & Plan Note - Ken Israel MD - 10/29/2024 10:17 AM EDTAssociated Problem(s): Language barrier * Assessment & Plan Note - Ken Israel MD - 10/29/2024 10:17 AM EDTAssociated Problem(s): Ultrasound recheck of pyelectasis, antepartum (HCC) Scheduled 32 weeks IS documented in this encounter [facility] note* Diagnosis 27 weeks gestation of (HCC)- Primary state, incidental Language barrier Social maladjustment Supervision of high risk in second trimester (HCC) Unspecified high-risk Need for vaccination Need for prophylactic vaccination and inoculation against unspecified single disease Encounter for repeat ultrasound of pyelectasis, antepartum, single or unspecified fetus (HCC) Supervision of high risk in second trimester (HCC)- Primary Unspecified high-risk 29 weeks gestation of ([facility]) state, incidental Language barrier Social maladjustment [facility] Diagnosis 27 weeks gestation of (HCC)- Primary state, incidental Language barrier Social maladjustment Supervision of high risk in second trimester ([facility]) Unspecified high-risk Need for vaccination Need for prophylactic vaccination and inoculation against unspecified single disease Encounter for repeat ultrasound of pyelectasis, antepartum, single or unspecified fetus ([facility]) Supervision of high risk in third trimester ([facility])- Primary Unspecified high-risk 32 weeks gestation of ([facility]) state, incidental Language barrier Social maladjustment Encounter for repeat ultrasound of pyelectasis, antepartum, single or unspecified fetus ([facility]) Chlamydia infection affecting in first trimester ([facility]) [facility] Diagnosis 27 weeks gestation of ([facility])- Primary state, incidental Language barrier Social maladjustment Supervision of high risk in second trimester ([facility]) Unspecified high-risk Need for vaccination Need for prophylactic vaccination and inoculation against unspecified single disease Encounter for repeat ultrasound of pyelectasis, antepartum, single or unspecified fetus ([facility]) Encounter for ultrasound to check growth ([facility])- Primary Encounter for routine screening for malformation using ultrasonics Encounter for repeat ultrasound of pyelectasis, antepartum, single or unspecified fetus ([facility]) 32 weeks gestation of ([facility]) state, incidental [facility] Diagnosis 27 weeks gestation of ([facility])- Primary state, incidental Language barrier Social maladjustment Supervision of high risk in second trimester ([facility]) Unspecified high-risk Need for vaccination Need for prophylactic vaccination and inoculation against unspecified single disease Encounter for repeat ultrasound of pyelectasis, antepartum, single or unspecified fetus ([facility]) Supervision of high risk in third trimester ([facility])- Primary Unspecified high-risk 34 weeks gestation of ([facility]) state, incidental documented in this encounter [facility] for referral (narrative)* Diagnostic Procedure Only (Routine) - Pending Review Specialty Diagnoses / Procedures Referred By Jared mccracken [facility] Diagnoses Supervision of high risk in first trimester with uncertain dates in first trimester 12 weeks gestation of Nausea/vomiting in Procedures OBSTETRIC ULTRASOUND WHI US PREG UTERUS AFTER 1ST TRIMEST GESTATION Julieta Wade APRN.CNP [address] [place] [address] [facility] [address] [place] [address] Referral ID Status Reason Start Date Expiration Date Visits Requested Visits Authorized [id number] Pending Review Auto-Generat ed Referral 08/02/2024 08/02/2025 1 1 * Diagnostic Procedure Only (Routine) - Pending Review Specialty Diagnoses / Procedures Referred By Contac t Referred To Contact [facility] 2] Diagnoses Supervision of high risk in first trimester with uncertain dates in first trimester 12 weeks gestation of Nausea/vomiting in Procedures OBSTETRIC ULTRASOUND WHI US PREG UTERUS AFTER 1ST TRIMEST GESTATION Julieta Wade APRN.CNP [address] [place] [address] [facility] [place] [address] Referral ID Status Reason Start Date Expiration Date Visits Requested Visits Authorized [id number] Pending Review Auto-Generat ed Referral 08/02/2024 08/02/2025 1 1 [facility] for referral (narrative)* Diagnostic Procedure Only (Routine) - Pending Review Specialty Diagnoses / Procedures Referred By Contac t Referred To Contact [facility]] Diagnoses Supervision of high risk in first trimester 13 weeks gestation of Procedures OBSTETRIC ULTRASOUND WHI US PREG UTERUS AFTER 1ST TRIMEST GESTATION Ken Israel MD [address] [place] [address] [facility] [address] [place] [id number] Referral ID Status Reason Start Date Expiration Date Visits Requested Visits Authorized [id number] Pending Review Auto-Generat ed Referral 08/06/2024 08/06/2025 1 1 [facility] Summary Purpose Family History No Family History Records Found Advance Directives No Advanced Directives Records Found Additional Source Comments Source Comments (unrecognize d section and content) In the event this informatio n is protected by the Federal Confidentiality of Alcohol and Drug Abuse Patient Records regulations: The Federal rules restrict any use of the information to criminally investigate or prosecute any alcohol or drug abuse patient.[facility] PrebleIn the event this information is protected by the Federal Confidentiality of Alcohol and Drug Abuse Patient Records regulations: The Federal rules restrict any use of the information to criminally investigate or prosecute any alcohol or drug abuse patient.[facility] PrebleIn the event this information is protected by the Federal Confidentiality of Alcohol and Drug Abuse Patient Records regulations: The Federal rules restrict any use of the information to criminally investigate or prosecute any alcohol or drug abuse patient.[facility] PrebleIn the event this information is protected by the Federal Confidentiality of Alcohol and Drug Abuse Patient Records regulations: The Federal rules restrict any use of the information to criminally investigate or prosecute any alcohol or drug abuse patient.[facility] PrebleIn the event this information is protected by the Federal Confidentiality of Alcohol and Drug Abuse Patient Records regulations: The Federal rules restrict any use of the information to criminally investigate or prosecute any alcohol or drug abuse patient.[facility] PrebleIn the event this information is protected by the Federal Confidentiality of Alcohol and Drug Abuse Patient Records regulations: The Federal rules restrict any use of the information to criminally investigate or prosecute any alcohol or drug abuse patient.[facility] PrebleIn the event this information is protected by the Federal Confidentiality of Alcohol and Drug Abuse Patient Records regulations: The Federal rules restrict any use of the information to criminally investigate or prosecute any alcohol or drug abuse patient.[facility] PrebleIn the event this information is protected by the Federal Confidentiality of Alcohol and Drug Abuse Patient Records regulations: The Federal rules restrict any use of the information to criminally investigate or prosecute any alcohol or drug abuse patient.[facility] PrebleIn the event this information is protected by the Federal Confidentiality of Alcohol and Drug Abuse Patient Records regulations: The Federal rules restrict any use of the information to criminally investigate or prosecute any alcohol or drug abuse patient.[facility]bleIn the event this information is protected by the Federal Confidentiality of Alcohol and Drug Abuse Patient Records regulations: The Federal rules restrict any use of the information to criminally investigate or prosecute any alcohol or drug abuse patient.[facility]bleIn the event this information is protected by the Federal Confidentiality of Alcohol and Drug Abuse Patient Records regulations: The Federal rules restrict any use of the information to criminally investigate or prosecute any alcohol or drug abuse patient.[facility]bleIn the event this information is protected by the Federal Confidentiality of Alcohol and Drug Abuse Patient Records regulations: The Federal rules restrict any use of the information to criminally investigate or prosecute any alcohol or drug abuse patient.[facility] PrebleIn the event this information is protected by the Federal Confidentiality of Alcohol and Drug Abuse Patient Records regulations: The Federal rules restrict any use of the information to criminally investigate or prosecute any alcohol or drug abuse patient.[facility]bleIn the event this information is protected by the Federal Confidentiality of Alcohol and Drug Abuse Patient Records regulations: The Federal rules restrict any use of the information to criminally investigate or prosecute any alcohol or drug abuse patient.[facility]bleIn the event this information is protected by the Federal Confidentiality of Alcohol and Drug Abuse Patient Records regulations: The Federal rules restrict any use of the information to criminally investigate or prosecute any alcohol or drug abuse patient.[facility] PrebleIn the event this information is protected by the Federal Confidentiality of Alcohol and Drug Abuse Patient Records regulations: The Federal rules restrict any use of the information to criminally investigate or prosecute any alcohol or drug abuse patient.[facility] PrebleIn the event this information is protected by the Federal Confidentiality of Alcohol and Drug Abuse Patient Records regulations: The Federal rules restrict any use of the information to criminally investigate or prosecute any alcohol or drug abuse patient.[facility] PrebleIn the event this information is protected by the Federal Confidentiality of Alcohol and Drug Abuse Patient Records regulations: The Federal rules restrict any use of the information to criminally investigate or prosecute any alcohol or drug abuse patient.[facility]bleIn the event this information is protected by the Federal Confidentiality of Alcohol and Drug Abuse Patient Records regulations: The Federal rules restrict any use of the information to criminally investigate or prosecute any alcohol or drug abuse patient.[facility] PrebleIn the event this information is protected by the Federal Confidentiality of Alcohol and Drug Abuse Patient Records regulations: The Federal rules restrict any use of the information to criminally investigate or prosecute any alcohol or drug abuse patient.[facility] Reason for Visit (unrecogniz ed section and content) Reason Comments US Specialty Diagnoses / Procedures Referred By Jared t Referred To Contact [facility] [place]NOTE 2] Diagnoses Encounter for repeat ultrasound of pyelectasis, antepartum, single or unspecified fetus (HCC) Procedures OBSTETRIC ULTRASOUND WHI US PREG UTERUS AFTER 1ST TRIMEST GESTATION Angelic Chen MD [address] [place] [address] Phone: tel: fax: [facility] [address] [place] [address] Referral ID Status Reason Start Date Expiration Date Visits Requested Visits Authorized [id number] Pending Review Auto-Generate d Referral Patient Cleared - Qualified 100% FAS 10/01/2024 10/01/2025 99 99 Reason Onset Date Comments Care 12/04/2024 Specialty Diagnoses / Procedures Referred By Contac t Referred To Contact Diagnoses anyhting medcially necessary Procedures anyhting medcially necessary [facility] [address] Referral ID Status Reason Start Date Expiration Date Visits Requested Visits Authorized [id number] Authorized Financial Clearance Required - Self Pay Patient Cleared - Qualified 100% FAS 10/29/2024 01/27/2025 99 99 Specialty Diagnoses / Procedures Referred By Contac t Referred To Contact Diagnoses new ob Procedures OFFICE VISIT, NEW PT., LEVEL 5 [facility] [address] Referral ID Status Reason Start Date Expiration Date Visits Requested Visits Authorized [id number] Authorized Patient Cleared - Qualified 100% FAS 07/30/2024 10/28/2024 99 99 Reason Comments Initial OB Visit Specialty Diagnoses / Procedures Referred By Contac t Referred To Contact Diagnoses new ob Procedures OFFICE VISIT, NEW PT., LEVEL 5 [place] [address] Referral ID Status Reason Start Date Expiration Date Visits Requested Visits Authorized [id number] Authorized Patient Cleared - Qualified 100% FAS 07/30/2024 10/28/2024 99 99 Reason Comments Results STD Specialty Diagnoses / Procedures Referred By Contac t Referred To Contact [facility] [place]NOTE 2] Diagnoses Supervision of high risk in first trimester with uncertain dates in first trimester 12 weeks gestation of Nausea/vomiting in Procedures OBSTETRIC ULTRASOUND WHI US PREG UTERUS AFTER 1ST TRIMEST GESTATION Julieta Wade, TERESA.NUTRITIONAL SERVICES DIRECTOR [address] [place] [address] [facility] [address] [place] [address] Referral ID Status Reason Start Date Expiration Date Visits Requested Visits Authorized [id number] Pending Review Auto-Generat ed Referral 08/02/2024 08/02/2025 1 1 Reason Onset Date Comments Care 08/06/2024 Reason Onset Date Comments Care 09/03/2024 Specialty Diagnoses / Procedures Referred By Contac t Referred To Contact Diagnoses new ob Procedures OFFICE VISIT, NEW PT., LEVEL 5 [facility] [place] [address] Referral ID Status Reason Start Date Expiration Date Visits Requested Visits Authorized [id number] Authorized Patient Cleared - Qualified 100% FAS 07/30/2024 10/28/2024 99 99 Reason Onset Date Comments Care 10/01/2024 Specialty Diagnoses / Procedures Referred By Contac t Referred To Contact Diagnoses new ob Procedures OFFICE VISIT, NEW PT., LEVEL 5 [facility] [address] Referral ID Status Reason Start Date Expiration Date Visits Requested Visits Authorized [id number] Authorized Patient Cleared - Qualified 100% FAS 07/30/2024 10/28/2024 99 99 Reason Onset Date Comments Care 10/29/2024 Reason Onset Date Comments Care 11/15/2024 Reason Comments Care Plan Care Coordination Reason Onset Date Comments Care 12/18/2024 Care Teams (unrecognized sec tion and content) Commercial Energy Auditor Relationship Specialty Start Date End Date Juliette Wen RN Maintenance Journeyman Medicine 12/13/24 Commercial Energy Auditor Relationship Specialty Start Date End Date Juliette Wen RN Maintenance Journeyman Medicine 12/13/24 Commercial Energy Auditor Relationship Specialty Start Date End Date Juliette Wen RN Maintenance Journeyman Medicine 12/13/24 INFORMATION SOURCE (unrecogn ized section and content) DATE CREATED AUTHOR 12/20/2024 [facility] FOR RECORDS PERTAINING TO PATIENTS WHO ARE OR HAVE BEEN ENROLLED IN A CHEMICAL DEPENDENCY/SUBSTANCEABUSE PROGRAM, SOME INFORMATION MAY BE OMITTED. This clinical summary was aggregated from multiple sources. Caution should be exercised in using it in the provision of clinical care. This summary normalizes information from multiple sources, and as a consequence, information in this document may materially change the coding, format and clinical context of patient data. In addition, data may be omitted in some cases. CLINICAL DECISIONS SHOULD BE BASED ON THE PRIMARY CLINICAL RECORDS. [facility] [employer] [facility]. provides no warranty or guarantee of the accuracy or completeness of information in this document.
[2024-12-29] MEDS: Lactated Ringers 1,000 ML 50 ML IV (20:20)
--- NOTE | 2024-12-29 20:20 | PCM.HP.OB ---
HPI - General General Date of Admission: 12/29/24 Date of Service: 12/29/24 Chief Complaint: PROM HPI Narrative AUDIE BURK, is a 19 F who presents PROM at 1820. Clear. Positive ROM. GBS unknown. Contractions q 3 minutes. Does not want an epidural. Bilateral UTD of fetus. Vertex on ultrasound 3 cm Maternal Data Information Final SUZY: 01/26/25 Gestational age: 36 PFSH PFSH Home Medications ?Medication ?Instructions ?Recorded ?Last Taken ?Type aspirin 81 mg chewable tablet 1 tab PO DAILY 12/29/24 12/23/24 History (Aspirin Childrens) Allergy/AdvReac Type Severity Reaction Status Date / Time No Known Allergies Allergy Verified 12/29/24 19:23 History 1 Elective abortions Hx Para 0 Spontaneous abortions Hx # Term Pregnancies Ectopic pregnancies Hx # Pregnancies Multiple births # of living children NST FHR Rate Baby A Baseline: 135 Variability:: Moderate Accelerations:: 15 x 15 Decelerations:: None NST Reactive:: Yes Uterine Activity:: q2-3 ROS Constitutional Constitutional: Denies fatigue, fever(s) or malaise Eyes Eyes: Denies change in vision ENT HEENT: Denies dizziness or headache(s) Cardiovascular Cardiovascular: Denies chest pain, dyspnea or lightheadedness Respiratory/Chest Respiratory/Chest: Denies cough or dyspnea Gastrointestinal Gastrointestinal: Denies change in bowel habits Genitourinary Genitourinary: Denies burning urination or genital lesions Integumentary Integumentary: Denies rash Neurologic Neurologic: Denies confusion, dizziness, headache(s), numbness or weakness Vital Signs Vital Signs Vital Signs: 12/29/24 19:30 12/29/24 19:30 12/29/24 19:30 Temperature Temperature Source Pulse Rate 75 Respiratory Rate Blood Pressure 108/60 BP Systolic 108 BP Diastolic 60 Pulse Ox 99 12/29/24 19:31 12/29/24 19:31 12/29/24 19:31 Temperature 98.3 F Temperature Source Temporal Pulse Rate Respiratory Rate 16 Blood Pressure BP Systolic BP Diastolic Pulse Ox Weight Weight: 75 kg Body Mass Index (BMI) 26.6 Physical Exam Const alert and no apparent distress General Appearance: cooperative HEENT normocephalic Resp normal respiratory effort Cardio regular rate GI soft to palpation GI Narrative: gravid, nontender, appropriate for gestational age Extremity no calf tenderness General Extremity: edema Skin no wounds Rashes: No rashes noted Psych activity/motor behavior normal Labs Labs Labs: Group B Strep DNA Pending Assessment & Plan (1) PROM (premature rupture of membranes): QUALIFIERS: PROM onset of labor timing: onset of labor within 24 hours of rupture PROM gestational age: -third trimester Qualified Code(s): O42.013 - premature rupture of membranes, onset of labor within 24 hours of rupture, third trimester (2) 36 weeks gestation of : (3) Ultrasound recheck of pyelectasis, antepartum: QUALIFIERS: Fetus number: single or unspecified fetus Qualified Code(s): O35.EXX0 - Maternal care for other (suspected) abnormality and damage, genitourinary anomalies, not applicable or unspecified PLAN: Plan Pit augmentation prn GBS unknown- pcn
[2024-12-29 20:39] LABS: Absolute Lymphocyte Count 3.05 X10^3/uL (0.83-4.51); Basophil# 0.03 X10^3/uL; Basophil% 0.3 % (0-1); Eosinophil# 0.07 X10^3/uL; Eosinophils% 0.6 % (0-5); Hematocrit 37.9 % (37-47); Hemoglobin 12.3 g/dL (12.0-15.0); Lymphocyte # 3.05 X10^3/ul (0.83-4.51); Lymphocyte % 27.7 % (19-41); Mean Corp Hgb Conc 32.5 g/dL (32-36); Mean Corpuscular Hgb 28.4 pg (27.0-32.0); Mean Corpuscular Volume 87.5 fL (81-99); Mean Platelet Vol. 12.3 fl (6.2-12.0); Monocyte# 0.83 X10^3/uL; Monocyte% 7.5 % (0-10); NRBC Flagged by Analyzer 0 % (0-5); Neutrophil # 6.97 X10^3/uL (2.7-7.7); Neutrophil % 63.3 % (47-70); Platelet Count 192 K/mm3 (150-450); RBC Distribution Width CV 12.4 % (11.6-14.6); RBC Distribution Width SD 39.6 fl (35.1-43.9); Red Blood Count 4.33 M/mm3 (4.2-5.4)
[2024-12-29] MEDS: Penicillin G Pot 5,000,000 UNITS in 0.9% Normal Saline (100mL MB+) 100 ML 150 UNITS IV (20:39)
[2024-12-29 20:46] VITALS: BP 113/57; PULSE 83; RESP 16; TEMP 36.7; O2SAT 98
[2024-12-29 20:49] LABS: Group B Strep DNA By PCR Negative (Negative); Internal Control PASS; Probe Check PASS; Specimen Processing Control PASS
[2024-12-29] MEDS: 0.9% Saline Lock 10 ML Syringe IV (20:56)
[2024-12-29] MEDS: Ondansetron 4 MG/2 ML Vial IV (20:56)
[2024-12-29 21:12] LABS: Syphilis Antibodies Nonreactive (Nonreactive)
[2024-12-29 22:00] VITALS: BP 115/64; PULSE 97; RESP 16; TEMP 36.7; O2SAT 98
--- NOTE | 2024-12-29 22:01 | NURSING ---
IA offered to pt. pt declines at thistime. requesting external monitor.
[2024-12-29 22:47] VITALS: BP 119/67; PULSE 85; PULSE 96; RESP 16; TEMP 36.4; O2SAT 98
[2024-12-29 23:30] VITALS: PULSE 114; O2SAT 98
[2024-12-29] MEDS: Oxytocin 15 Units/NS 250ml 15 UNITS/250 ML IV.SOLN 334 UNITS IV (23:52)
[2024-12-29] MEDS: Lidocaine 1% (20 ml mdv) 20 ML Vial INFILT (23:55)
[2024-12-30] VITALS (43 sets, daily range): BP systolic 90–122; BP diastolic 53–72; PULSE 69–108; RESP 14–18; TEMP 36.4–37.2; O2SAT 83–100
--- NOTE | 2024-12-30 00:10 | EX.PCM.OBVAG ---
Assessment & Plan (1) (spontaneous vaginal delivery): Maternal Data Information Final SUZY: 01/26/25 Gestational age: 36 Vaginal Delivery Maternal Presentation Maternal Presentation: Active Labor and Spontaneous Rupture of Membranes Vaginal Delivery Information Procedure Performed: Spontaneous Vaginal Delivery Surgeon/Practitioner: Angelic Chen Date of Procedure: 12/29/24 Pre-Procedure Diagnosis: labor Post-Procedure Diagnosis: Type of anesthesia: Local with 1% Lidocaine Estimated Blood Loss: 100 cc Time of Delivery: 23:49 Findings Description of procedure: Patient presented with SROM and active labor. GBS unknown. Treated with PCN. Patient progressed quickly to complete and pushed for about 20 minutes. The vertex delivered over an intact peritoneum followed quickly by the anterior and posterior shoulders. The infant cried upon delivery and was placed on the maternal abdomen. The cord was clamped and cut at 1 minute. The placenta delivered with gentle traction. A right labial laceration was repaired with 3-0 Vicryl. All sponge, needle and instruments counts were correct. Presentation: Vertex and COLEEN Amniotic Membrane Rupture Type: Spontaneous Amniotic Fluid Description: Clear Placental Delivery Description: Spontaneous Placenta Disposition: [facility] Specimen collected: No Cord Vessel Description: 3 Vessels Cord Entanglement: None A Gender: Male (1 minute): 9 (5 minute): 9 Delayed Cord Clamping: Yes Post Vaginal Deli Medications given after delivery: IV Pitocin Episiotomy Description: None Laceration: None (right labial) Complication Complications: No
[2024-12-30] MEDS: Oxytocin 15 Units/NS 250ml 15 UNITS/250 ML IV.SOLN 83 UNITS IV (00:23)
--- NOTE | 2024-12-30 07:15 | PN.OBGYN_ITS ---
Subjective Subjective Doing well. Ambulating and voiding without difficulty. Mild lochia. Breast feeding. Objective Data Objective Data Vital Signs: Vital Signs Temp Pulse Resp BP Pulse Ox O2 Del Method 98.1 F 108 H 14 122/72 H 98 Room Air 12/30/24 04:32 12/30/24 04:42 12/30/24 04:32 12/30/24 04:42 12/30/24 04:42 12/30/24 04:32 Oxygen Delivery Method Room Air Weight: 75 kg Body Mass Index (BMI) 26.6 Intake & Output: Intake and Output for Last 24 Hours 12/28/24 12/29/24 12/30/24 23:59 23:59 23:59 Intake Total 715.33 / 715.33 1317 / 1317 Output Total 1700 / 1700 Balance 715.33 / 715.33 -383 / -383 Lab / Micro Data 12/29/24 20:20 Labs: Laboratory Results - last 24 hr 12/29/24 19:35: Vag Amniotic Fld Detect POSITIVE H 12/29/24 19:50: Group B Strep DNA Negative, Specimen Comment Not Reportable 12/29/24 20:20: WBC 11.0, RBC 4.33, Hgb 12.3, Hct 37.9, MCV 87.5, MCH 28.4, MCHC 32.5, RDW Std Deviation 39.6, RDW Coeff of Erendira 12.4, Plt Count 192, MPV 12.3 H, Immature Gran % (Auto) 0.600, Neut % (Auto) 63.3, Lymph % (Auto) 27.7, Tompkins % (Auto) 7.5, Eos % (Auto) 0.6, Baso % (Auto) 0.3, Absolute Neuts (auto) 7.0, Absolute Lymphs (auto) 3.05, Nucleated RBC % 0, Syphilis Total Ab Nonreactive, Blood Type O POSITIVE, Antibody Screen NEGATIVE ROS Constitutional Constitutional: Denies headache(s) Cardiovascular Cardiovascular: Denies chest pain or dyspnea Gastrointestinal Gastrointestinal: Denies nausea or vomiting Genitourinary Genitourinary: Denies dysuria Physical Exam Const alert, oriented x3 and no apparent distress General Appearance: cooperative and comfortable Eyes PERRL and EOMs intact bilaterally Resp normal respiratory effort GI soft to palpation and non-tender Uterus Palpation: uterus fundus firm ( below umbilicus) Extremity normal to inspection and full ROM Neuro oriented x3 and CN's II-XII intact bilaterally Psych mental status grossly normal Assessment & Plan (1) (spontaneous vaginal delivery): (2) PROM (premature rupture of membranes): QUALIFIERS: PROM onset of labor timing: onset of labor within 24 hours of rupture PROM gestational age: -third trimester Qualified Code(s): O42.013 - premature rupture of membranes, onset of labor within 24 hours of rupture, third trimester PLAN: Plan Routine care
[2024-12-30] MEDS: SELF ADMINISTRATION OF MEDS 1 EACH NOTE (10:00)
--- NOTE | 2024-12-30 14:49 | CASEMGMT ---
Social Work Assessment Labor and Delivery Unit Patient Address: [address] [place] [address] Phone number: [phone] Date of Referral: 12/29/24 Time of Referral: 2035? Referred By: Dr. Chen Date of Intervention: ??12/30/24 Time of Intervention:? 1400 Reason for Referral:?housing instability early in , malay speaking Sw completed chart review and acknowledges social work consult. Sw presented to bedside and introduced self to mother of baby (MOB- Angela) and father of baby (DAVE- Erickson). Sw explained reason for sw involvement and completed psychosocial assessment. MOB speaks Tongan, and FOB speaks primarily Serbian. MOB would translate from time to time if FOB was not understanding what sw was saying. History obtained from: medical records, MOB and FOB Household composition:MOB states that she and FOAna are currently living with paternal grandmother. Bandon baby to be included in residence when ready for discharge. MOB denies any problems or concerns with housing, stating that it is safe and secure. Patient's parent/guardian status:? ?HIGINIO states that she and DAVE met online a year ago and have been together since then. No problems reported regarding domestic violence or intimate partner violence. This is first baby for both parents. Medical History: ?HIGINIO is 19 year old female who is 1, para 0- now 1 following labor and delivery of . HIGINIO received routine care during with [facility]. HIGINIO presented to hospital in active labor and delivered baby via spontaneous vaginal delivery on 12/29/24. Baby boy, named Raymon Almendarez, was born weighing 6lb 6oz with apgars of 9 and 9 at one and five minutes of life, respectfully. HIGINIO is breast feeding and baby will be followed by Dr. Patel for pediatrics. Educational Status:?Both parents completed high school in [place]. Financial Status: FOAna is employed for a [employer] and is paid under the table. MOB states that she is unemployed at this time and FOB supports her financially. Supplies:?? MOB states that they have clothes, diapers and wipes for baby as well as a car seat. MOB states that they have not obtained a safe sleep space for baby yet because he came a couple of weeks early. Sw explained to MOB that in order for parents to practice safe sleep space when they are discharged, Sw needs to know that they have been able to obtain a safe sleep space prior to discharge. Sw stated that suitable options include: pack-n-play, bassinet, or crib. MOB expressed understanding. Childcare/Caregiver(s):? HIGINIO will be the primary caregiver to baby, along with FOB when he is not working. Transportation:?? HIGINIO has her drivers license and reliable transportation, no barriers. Programs/Agencies Involved: ???MOB is not connected to any community agencies that assist her. [employer] got connected with MOB prior to discharge to assist with getting baby connected to Medicaid insurance, as well as insurance coverage for MOB's hospitalization. Children Services/Legal Issues:??? No prior children services involvement, no issues or concerns warranting referral to be made at this time. Behavioral Health Issues: ??Mental Health History: Parents deny mental health history, including anxiety or depression. ?? Substance Use History:?Parents deny substance use prior to and during . ? Family History:??MOB denies family history of substance use or significant mental health diagnoses. ??? Drug Screens: ??No drug screens observed in chart review. Family/Social Stressors:? MOB denies any issues, concerns or stressors at this time. MOB completed an SDOH form and did not indicate and social needs or issues. Support Systems: MOB identifies that DAVE is her biggest support person. Depression/Shaken Baby/Safe Sleeping:? Sw educated parents on signs and symptoms of baby blues and depression and anxiety. MOB expressed understanding, and denies experiencing any of these symptoms during her . Sw educated parents on shaken baby prevention and ABCs of safe sleep, MOB expressed understanding. ASSESSMENT:? MOB and baby admitted following labor and delivery of . MOB informed sw that she does not have a safe sleep space for baby, but states FOB will be able to obtain one prior to their discharge. MOB expresses understanding of why it is important for baby to have a separate sleep space from parents. MOB and FOB are from [place], and have been together for one year after meeting online. HIGINIO is a stay at home mom, and FOB is the sole provider for their family. They currently reside with paternal grandmother. HIGINIO has her drivers license and reliable means of transportation. Upon entering patient's room she was observed laying in bed comfortably feeding baby, and welcomed sw in. MOB answered questions asked but did not elaborate on answers. Sw explained she would be following up with parents tomorrow prior to discharge to ensure that they have obtained safe sleep space before they leave the hospital with baby. MOB expressed understanding. PLAN:? No other services requested or indicated. MOB and baby to be discharged when medically ready. Parents were provided literature regarding: signs and symptoms of baby blues and mood and anxiety disorders, Help Me Grow, shaken baby prevention, ABCs of safe sleep and a list of county resources that are available for them should any needs present themselves. Brittani Harper, PATHOLOGY LABORATORY DIRECTOR, [facility]
[2024-12-31 01:50] VITALS: BP 105/58; PULSE 89; RESP 16; TEMP 36.9; O2SAT 97
[2024-12-31 01:53] VITALS: BP 105/58; PULSE 82
[2024-12-31 07:33] VITALS: BP 112/58; PULSE 82
[2024-12-31 07:50] VITALS: BP 112/58; PULSE 76; RESP 16; TEMP 36.7; O2SAT 98
--- NOTE | 2024-12-31 08:36 | PCM.PN.OB ---
Subjective Subjective Denies complaints Objective Data Objective Data Vital Signs: Vital Signs Temp Pulse Resp BP Pulse Ox O2 Del Method 98.1 F 76 16 112/58 L 98 Room Air 12/31/24 07:50 12/31/24 07:50 12/31/24 07:50 12/31/24 07:50 12/31/24 07:50 12/31/24 07:50 Oxygen Delivery Method Room Air Weight: 165 lb 5.547 oz Body Mass Index (BMI) 26.6 Intake & Output: Intake and Output for Last 24 Hours 12/29/24 12/30/24 12/31/24 23:59 23:59 23:59 Intake Total 715.33 / 715.33 1317 / 1317 Output Total 1700 / 1700 Balance 715.33 / 715.33 -383 / -383 Lab / Micro Data 12/29/24 20:20 Physical Exam Const alert, oriented x3 and no apparent distress HEENT normocephalic GI soft to palpation, non-tender and non-distended GI Narrative: fundus firm, mid & below umbilicus Extremity normal to inspection and no calf tenderness Assessment & Plan (1) (spontaneous vaginal delivery): PLAN: Plan D/c home
--- NOTE | 2024-12-31 08:37 | PCM.DC.SUM ---
Providers Date of Admission: 12/29/24 Primary Care Physician: [facility] Reason For Visit: LABOR Diagnosis Discharge Diagnosis (1) (spontaneous vaginal delivery): Status: Acute Code(s): O80 - Encounter for full-term uncomplicated delivery Plan D/c home Medications at Discharge Home Medications acetaminophen 500 mg tablet 1,000 mg (2 x 500 mg) PO Q6H PRN PRN Pain 1-10 Or Fever #0 tabs 12/31/24 ibuprofen 600 mg tablet 600 mg PO Q6H PRN PRN Pain Score 1-10 #0 tabs 12/31/24 Hospital Course Operations None Procedures None Summary of Care Provided Minutes Spent on Discharge: 15 Weight / BMI Weight Weight: 165 lb 5.547 oz Body Mass Index (BMI) 26.6 ABG / Lab / Microbiology Data 12/29/24 20:20 D/C Instructions May resume sexual activity in: 6 weeks Weight Bearing Status: Weight bearing as tolerated Call your doctor if you observe: Fever of 101 or Higher, Coldness, Increased Pain, Change in Color, Inability to urinate, Inability to have a bowel movement, Using more than 1 pad per hour, Shortness of breath, Dizziness, Fainting spells, Chest pain, Increased palpitations (irregular heartbeat), Calf discomfort and Uncontrolled pain DC O2, CPAP, BIPAP Needs Home O2 Discharge instructions: No Please Follow Up With: Griselda Perez MD When: Follow up in 2 and 6 weeks for visits. Meaningful Use Info Meaningful Use Meaningful Use Diagnoses (Choose all that apply): None applicable Ischemic Stroke Statin Dosing Therapy Reference: STATIN DOSE THERAPY REFERENCE: * Patients > 75 years receive moderate or high dose statin therapy. * Patients 75 years or YOUNGER should receive HIGH intensity statin dose unless contraindicated. You will be required to document reason for non-treatment if statin daily dose does not meet guidelines. HIGH DOSE STATIN THERAPY DAILY Atorvastatin > than or = to 40 mg Rosuvastatin > than or = to 20 mg Amlodipine + Atorvastatin > than or = to 2.5/40 mg Ezetimibe + Simvastatin 10/80 mg Simvastatin 80mg Discharge Plan Admission Admit Date/Time: 12/29/24 20:09 Primary Reason for Your Visit: Vaginal delivery Attending Provider: Angelic Chen Primary Care Provider: Care Physician,[facility] Primary Discharge Orders/Prescriptions Prescriptions: New acetaminophen 500 mg Tablet 1,000 mg PO Q6H PRN PRN (Reason: Pain 1-10 Or Fever) Qty: 0 0RF ibuprofen 600 mg Tablet 600 mg PO Q6H PRN PRN (Reason: Pain Score 1-10) Qty: 0 0RF Discontinued aspirin [Aspirin Childrens] 81 mg tablet,chewable 1 tab PO DAILY Referrals / Follow Up: Care Physician,No Primary [Primary Care Provider] - Disposition Disposition (needs filled in before D/C Order can be placed): Home, Self Care
--- NOTE | 2024-12-31 13:17 | CASEMGMT ---
Labor and Delivery Carton Forming Machine Adjuster Sw presented to bedside and met with mother of baby (MOB- Angela) briefly. Sw asked if parents were able to obtain a safe sleep space for baby as they are preparing for discharge today. MOB states that father of baby (FOB) left hospital yesterday and went to the store to get a bassinet for baby. Sw asked if parents have any other needs or concerns at this time. Sw congratulated parents again for . No needs or concerns at this time. Sw met with parents to confirm they have obtained safe sleep space for prior to discharge to home. Brittani Harper, GANG WORKER, PRINT COLOR OPERATOR
--- NOTE | 2024-12-31 13:49 | CASEMGMT ---
Labor and Delivery Wire Mill Operator Sw presented to bedside and met with mother of baby (MOB- Angela) briefly. Sw asked if parents were able to obtain a safe sleep space for baby as they are preparing for discharge today. MOB states that father of baby (FOB) left hospital yesterday and went to the store to get a bassinet for baby. Sw asked if parents have any other needs or concerns at this time. Sw congratulated parents again for . No needs or concerns at this time. Sw met with parents to confirm they have obtained safe sleep space for prior to discharge to home. Brittani Harper, PPA TEACHER, GORING CUTTER
[2024-12-31 14:00] VITALS: BP 105/61; PULSE 73; RESP 16; TEMP 36.7; O2SAT 95
[2024-12-31 14:10] VITALS: BP 103/58; PULSE 60
== END 2024-12-31 18:25 | disposition home or self-care (01) | DRG 807 ==
LOC: WPPAT 20:12 → WP 20:12
PROVIDERS: Admitting Provider Obstetrics & Gynecology; Visit Provider Obstetrics & Gynecology
DX: O42.013 Preterm premature rupture of membranes, onset of labor within 24 hours of rupture, third trimester (principal); Z37.0 Single live birth; O35.EXX0 Maternal care for other (suspected) fetal abnormality and damage, fetal genitourinary anomalies, not applicable or unspecified; O70.0 First degree perineal laceration during delivery; Z3A.36 36 weeks gestation of pregnancy
CPT/HCPCS: 59025; 59050; 76815; 84112; 85025; 86780; 86850; 86900; 86901; 87081; 87653; 99221; A4216; G0378; J2405